=== PATIENT | male | born 1955 | race Caucasian/White ===

== ENCOUNTER 2023-03-21 08:39 | Emergency (ER) | payer MEDICARE, OTHER, SELFPAY ==
[2023-03-21] VITALS (13 sets, daily range): BP systolic 142–181; BP diastolic 91–107; PULSE 72–135; RESP 12–24; O2SAT 94–98
--- NOTE | 2023-03-21 08:44 | ECG_ITS ---
Measurements Intervals [place] Rate: 119 P: [place]: 0 QRS: 27 QRSD: 86 T: -10 QT: 325 QTc: 458 Interpretive Statements ATRIAL FLUTTER/TACHYCARDIA WITH RAPID VENTRICULAR RESPONSE DELAYED PRECORDIAL R/S TRANSITION NONSPECIFIC ST & T-WAVE ABNORMALITY- ANTEROLAT/HIGH LAT LEADS ABNORMAL ECG NO PREVIOUS ECG AVAILABLE FOR COMPARISON Electronically Signed On 03-21-2023 10:31:05 CDT by Yoandy Segundo D.O.
[2023-03-21 09:08] LABS: Basophils Percent Auto 0.4 % (0.2-1.2); Eosinophils Absolute Auto 0.1 K/mm3 (0-0.3); Eosinophils Percent Auto 1.6 % (0-4.4); Hematocrit 50.3 % (42.0-52.0); Hemoglobin 17.5 g/dL (14.0-18.0); Immature Granulocyte Absolute 0.01 K/mm3 (0.00-0.031); Immature Granulocyte Percent A 0.1 % (0-0.5); Lymphocytes Absolute Auto 1.92 K/mm3 (0.9-3.2); Lymphocytes Percent Auto 28.7 % (18.3-44.2); Mean Corpuscular HGB Conc 34.8 g/dl (32-36); Mean Corpuscular Hemoglobin 34.1 pg (26-34); Mean Corpuscular Volume 98.1 fl (80-100); Mean Platelet Volume 11.9 fl (7.4-10.4); Monocytes Absolute Auto 0.8 K/mm3 (0.1-0.6); Monocytes Percent Auto 12.1 % (2.6-8.5); Neutrophils Absolute Auto 3.8 K/mm3 (1.3-6.7); Neutrophils Percent Auto 57.1 % (45.5-73.1); Platelet Count Result 155 k/mm3 (150-375); Red Blood Count 5.13 M/mm3 (4.6-6.20); Red Cell Distribution Width 12.8 % (11.5-14.5); White Blood Count 6.7 K/mm3 (4.5-10.0)
[2023-03-21 09:17] LABS: Alanine Aminotransferase 32 U/L (6-50); Albumin Level 4.3 g/dL (3.5-5.1); Alkaline Phosphatase 73 U/L (38-126); Anion Gap 8 mmol/L (8-16); Aspartate Amino Transferase 33 U/L (17-59); Bilirubin,Total 1.7 mg/dL (0.2-1.3); Blood Urea Nitrogen 17 mg/dL (9-20); Calcium 9.7 mg/dL (8.4-10.2); Carbon Dioxide 29 mmol/L (22-30); Chloride 104 mmol/L (98-107); Estimated CRCL calculation 76 ml/min; Estimated Glomerular Filt Rate > 60; Glucose 93 mg/dL (65-110); Magnesium 1.8 mg/dL (1.6-2.3); Potassium 3.9 mmol/L (3.4-5.0); Sodium 141 mmol/L (137-145)
--- NOTE | 2023-03-21 09:22 | ED.GENADULT ---
HPI - General Adult General Chief complaint: Arrhythmia/Palpitations <RACIEL Macdonald Last Filed: 03/21/23 16:45> Stated complaint: AFIB and problems with my heart <RACIEL Macdonald Last Filed: 03/21/23 16:45> Time Seen by Provider: 03/21/23 08:54 <Seth Galindo PA-C - Last Filed: 03/21/23 16:45> Source: patient <RACIEL Macdonald Last Filed: 03/21/23 16:45> Mode of arrival: ambulatory <RACIEL Macdonald Last Filed: 03/21/23 16:45> Limitations: no limitations <RACIEL Macdonald Last Filed: 03/21/23 16:45> History of Present Illness HPI narrative: This is a 67-year-old male with PMH of A-fib who presents to the ED with chief complaint of palpitations ongoing for the past 48 hours. Patient states that he is a regular runner and went for his run on morning when the palpitations began shortly after. He states that normally his heart rate goes down after his runs, however it stayed high. He reports that he had a cardiac ablation for A-fib back in 2012 which seemed to eliminate most of his symptoms until lately. States his only symptoms are the palpitations. States he feels out of rhythm. Patient denies any chest pain, shortness of breath, cough, leg swelling. <RACIEL Macdonald Last Filed: 03/21/23 16:45> Related Data Home medications: Home Medications Medication Instructions Recorded Confirmed Flomax 03/21/23 cyclobenzaprine 10 mg tablet 10 mg PO TID 03/21/23 tramadol 50 mg tablet mg 03/21/23 zolpidem 5 mg tablet (Ambien) 5 mg PO HS 03/21/23 <RACIEL Macdonald Last Filed: 03/21/23 16:45> Allergies/adverse reactions: Allergies Allergy/AdvReac Type Severity Reaction Status Date / Time No Known Allergies Allergy Verified 03/21/23 08:44 <RACIEL Macdonald Last Filed: 03/21/23 16:45> Exam Narrative: GENERAL: Well-appearing, well-nourished, and in no acute distress. Resting comfortably in the bed. HEAD: Normocephalic, atraumatic. EYES: PERRLA and EOMI. ENT: Nares clear, no rhinorrhea or epistaxis. Mucous membranes moist. Oropharynx without tonsillar hypertrophy exudate or other lesions. NECK: Supple. No adenopathy or masses. CHEST: No respiratory distress. Clear to auscultation. No wheezes rales or rhonchi HEART: Regularly irregular. Rate in the room jumping from 110s to 130s. Grade II systolic murmur. Normal peripheral pulses. ABDOMEN: Soft, nontender, nondistended, normal active bowel sounds. MSK: Normal range of motion. No edema. SKIN: Warm, dry, no rash. NEURO: Alert and oriented x3. No focal deficits. PSYCH: Normal mood and affect. <Seth Galindo PA-C - Last Filed: 03/21/23 16:45> Course Course Emergency Course: Reevaluation 1000: Rate controlled in the 70s after 1 bolus of Cardizem 10 mg. Repeat EKG shows continued A flutter with rate 72 <Seth Galindo PA-C - Last Filed: 03/21/23 16:45> BLANCHARD GRINDER OPERATOR/PA Physician Supervision This visit was performed by both a physician and an APC. I performed all aspects of the MDM as documented. <Nam Newsome MD - Last Filed: 03/21/23 19:30> Vital Signs Vital signs: Vital Signs Pulse Rate 112 H 03/21/23 08:46 Respiratory Rate 22 H 03/21/23 08:46 Blood Pressure 154/106 H 03/21/23 08:46 Pulse Oximetry 98 03/21/23 08:46 Pulse Rate 73 03/21/23 10:47 Respiratory Rate 19 03/21/23 10:47 Blood Pressure 145/99 H 03/21/23 10:47 Pulse Oximetry 96 03/21/23 10:47 <RACIEL Macdonald Last Filed: 03/21/23 16:45> Vital Signs Pulse Rate 112 H 03/21/23 08:46 Respiratory Rate 22 H 03/21/23 08:46 Blood Pressure 154/106 H 03/21/23 08:46 Pulse Oximetry 98 03/21/23 08:46 Pulse Rate 73 03/21/23 10:47 Respiratory Rate 19 03/21/23 10:47 Blood Pressure 145/99 H 03/21/23 10:47 Pulse Oximetry 96 03/21/23 10:47 <Nam Newsome MD - Last Filed: 03/21/23 19:30> Medical Decision Making
[2023-03-21] MEDS: dilTIAZem HCl INJ 25 MG/5 ML VIAL 10 MG IV PUSH (09:36)
--- NOTE | 2023-03-21 09:43 | ECG_ITS ---
Measurements Intervals [place] Rate: 72 P: [place]: 0 QRS: 22 QRSD: 94 T: 123 QT: 397 QTc: 435 Interpretive Statements ATRIAL FLUTTER WITH NORMAL VENTRICULAR RESPONSE DELAYED PRECORDIAL R/S TRANSITION BORDERLINE ST-T WAVE ABNORMALITY- LAT/HIGH LAT LEADS ABNORMAL ECG COMPARED TO ECG 03/21/2023 08:48:39 HEART RATE HAS DECREASED Electronically Signed On 03-21-2023 10:33:47 CDT by Yoandy Segundo D.O.
== END 2023-03-21 10:57 | disposition home or self-care (01) ==
PROVIDERS: Emergency Provider Physician Assistant; PCP Family Medicine
DX: I48.92 Unspecified atrial flutter (principal); I48.91 Unspecified atrial fibrillation; Z79.899 Other long term (current) drug therapy
CPT/HCPCS: 36415; 80053; 83735; 85025; 93005; 96374; 99284

== ENCOUNTER 2023-12-23 10:10 | Outpatient (CLI) | payer MEDICARE, OTHER, SELFPAY ==
[2023-12-23 12:18] LABS: Basophils Percent Auto 0.6 % (0.2-1.2); Eosinophils Absolute Auto 0.1 K/mm3 (0-0.3); Eosinophils Percent Auto 1.8 % (0-4.4); Hematocrit 46.5 % (42.0-52.0); Hemoglobin 15.7 g/dL (14.0-18.0); Immature Granulocyte Absolute 0.02 K/mm3 (0.00-0.031); Immature Granulocyte Percent A 0.4 % (0-0.5); Immature Platelet Fraction Pct 13.4 % (0.9-11.2); Lymphocytes Absolute Auto 1.58 K/mm3 (0.9-3.2); Lymphocytes Percent Auto 32.2 % (18.3-44.2); Mean Corpuscular HGB Conc 33.8 g/dl (32-36); Mean Corpuscular Hemoglobin 34.2 pg (26-34); Mean Corpuscular Volume 101.3 fl (80-100); Mean Platelet Volume 13.2 fl (7.4-10.4); Monocytes Absolute Auto 0.5 K/mm3 (0.1-0.6); Monocytes Percent Auto 9.2 % (2.6-8.5); Neutrophils Absolute Auto 2.7 K/mm3 (1.3-6.7); Neutrophils Percent Auto 55.8 % (45.5-73.1); Platelet Count Result 141 k/mm3 (150-375); Red Blood Count 4.59 M/mm3 (4.6-6.20); White Blood Count 4.9 K/mm3 (4.5-10.0)
[2023-12-23 12:31] LABS: Alanine Aminotransferase 26 U/L (6-50); Albumin Level 4.7 g/dL (3.5-5.1); Alkaline Phosphatase 63 U/L (38-126); Anion Gap 6 mmol/L (4-12); Aspartate Amino Transferase 39 U/L (17-59); Bilirubin,Total 1.5 mg/dL (0.2-1.3); Blood Urea Nitrogen 15 mg/dL (9-20); Calcium 10.1 mg/dL (8.4-10.2); Carbon Dioxide 28 mmol/L (22-30); Chloride 108 mmol/L (98-107); Cholesterol 176 mg/dL (0-200); Estimated Glomerular Filt Rate > 60; Glucose 109 mg/dL (65-110); HDL Direct 56 mg/dL; Potassium 4.7 mmol/L (3.4-5.0); Sodium 142 mmol/L (137-145); Triglycerides 68 mg/dL (<150)
[2023-12-23 12:42] LABS: LDL Cholesterol Direct 98 mg/dL; Vitamin D 25 Hydroxy 27.9 ng/mL
[2023-12-23 12:54] LABS: Prostate Specific Antigen 3.2 ng/mL (< OR = 4.0)
[2023-12-23 13:13] LABS: Vitamin B12 > 1000.0 pg/mL (239-931)
[2023-12-23 13:19] LABS: Hemoglobin A1C 5.1 % (<5.7)
[2023-12-26 12:38] LABS: Testosterone Free 11.8 pg/mL (35.0-155.0); Testosterone Total 197 ng/dL (250-1100)
== END 2023-12-23 10:11 | disposition home or self-care (01) ==
PROVIDERS: PCP Family Medicine; Visit Provider Family Medicine
DX: M54.50 Low back pain, unspecified (principal); G89.29 Other chronic pain; I10 Essential (primary) hypertension; R73.9 Hyperglycemia, unspecified; E78.5 Hyperlipidemia, unspecified; E55.9 Vitamin D deficiency, unspecified; Z12.5 Encounter for screening for malignant neoplasm of prostate; E53.8 Deficiency of other specified B group vitamins; G47.00 Insomnia, unspecified; I48.0 Paroxysmal atrial fibrillation; K58.9 Irritable bowel syndrome, unspecified; R53.83 Other fatigue
CPT/HCPCS: 36415; 80053; 80061; 82306; 82607; 83036; 84153; 84402; 84403; 84443; 85025; 85055; G0103

== ENCOUNTER 2023-12-26 08:59 | Inpatient (IN) | payer MEDICARE, OTHER, SELFPAY ==
[2023-12-26] VITALS (11 sets, daily range): BP systolic 100–183; BP diastolic 62–96; PULSE 54–69; RESP 15–19; TEMP 36.1–36.7; O2SAT 96–100; BMI 26.1
--- NOTE | 2023-12-26 | ECHO_ITS ---
Patient Info Name: Nissa Jackson Age: 68 years : 1955 Gender: Male Ht: 71 in Wt: 187 lbs BSA: 2.07 m2 HR: 64 bpm BP: 116 / 71 mmHg Heart Rhythm: Sinus Rhythm Technical Quality: Fair Exam Date: 12/26/2023 3:05 PM Exam Location: Echo Lab Exam Room: 310 Patient Status: Inpatient Admit Date: 12/26/2023 Staff Ordering Physician: Armani Koenig MD Vamp Wetter: Dottie West RDCS Attending Provider: Jerry Sotelo MD Referring Physician: Arya LONDON; Exam Type: CA echo doppler color flow Study Info Indications - sob pericardial effusion elevated bnp pap Complete two-dimensional, color flow and Doppler transthoracic echocardiogram is performed. Summary 1. Complete two-dimensional, color flow and Doppler transthoracic echocardiogram is performed. 2. Left ventricular chamber dimension is normal. 3. Left ventricular systolic function is normal, estimated at 60-65%. 4. There is mildly increased left ventricular wall thickness. 5. The left ventricular diastolic function is normal. 6. Left atrial chamber dimension is mildly enlarged. 7. There is mild mitral valve regurgitation. 8. There is mild tricuspid valve regurgitation. 9. Mild pulmonary hypertension, estimated pulmonary arterial systolic pressure is 40 mmHg. 10. There is mild pulmonic regurgitation. 11. There is trivial pericardial effusion. Left Ventricle Left ventricular chamber dimension is normal. Left ventricular systolic function is normal, estimated at 60-65%. There is mildly increased left ventricular wall thickness. The left ventricular diastolic function is normal. Right Ventricle Right ventricular chamber dimension is normal. Right ventricular systolic function is normal. Left Atria Left atrial chamber dimension is mildly enlarged. Right Atria Right atrial chamber dimension is normal. Atrial Septum Intact interatrial septum visualized by color flow imaging. Aortic Valve The aortic valve is trileaflet. There is mild aortic valve sclerosis. There is no aortic valve stenosis. There is trace aortic valve regurgitation. Pulmonic Valve The pulmonic valve is normal. There is no pulmonic valve stenosis. There is mild pulmonic regurgitation. Mitral Valve The mitral valve has normal leaflets. There is no mitral valve stenosis. There is mild mitral valve regurgitation. Tricuspid Valve The tricuspid valve leaflets are normal. There is no significant tricuspid valve stenosis. There is mild tricuspid valve regurgitation. Mild pulmonary hypertension, estimated pulmonary arterial systolic pressure is 40 mmHg. Pericardium/Pleural The pericardium appears normal. There is trivial pericardial effusion. Inferior Vena Cava Normal inferior vena cava with >50% collapse upon inspiration consistent with elevated right atrial pressure, 10 mmHg. Aorta The aortic root size at the sinus of Valsalva is normal. Left Ventricular Outflow Tract Name Value Normal LVOT 2D LVOT Diameter 2.1 cm LVOT Doppler LVOT Peak Gradient 5 mmHg LVOT Mean Gradient 3 mmHg LVOT VTI 21 cm LVOT VTI/AV VTI Ratio
--- NOTE | ~2023-12-26 | XR_ITS ---
XR chest 1V portable 12/26/2023 09:22 Indication: Fatigue. Dyspnea with exertion. Procedure: AP portable chest Comparison: No prior studies for comparison. Findings: Heart size normal. No focal air space disease, pulmonary edema, pleural effusion or suspect ed pneumothorax. Impression: 1: No acute cardiopulmonary disease. Reviewed, dictated and finalized at location A. Impression: 1: No acute cardiopulmonary disease.
--- NOTE | ~2023-12-26 | CT_ITS ---
EXAMINATION: CTA chest PE protocol DATE: 12/26/2023 10:21 CDT INDICATION: Elevated d-dimer. TECHNIQUE: Computed tomographic angiography (CTA) of the chest was performed with 100 mL Omnipaque-35 0 intravenous contrast. The dose-length product was 431.78 mGy-cm. Maximum intensity projection 3D-re constructions of the aorta and other arteries were constructed by the technologist on a separate work station. Automated exposure control and iterative reconstruction technique were employed. COMPARISON: Chest dated 12/26/2023 FINDINGS: Study is technically adequate without evidence for pulmonary embolism. Trace right pleural effusion. Small pericardial effusion. Borderline heart size. Small hiatal hernia. Status post cholecy stectomy. No endobronchial lesions. There is dependent atelectasis. No pneumothorax. Status post chol ecystectomy. No endobronchial lesions. No focal airspace consolidation. Mild superior endplate compre ssion deformity of T3 which appears chronic. Mild thoracic spondylosis. No acute cardiopulmonary disease. No evidence for pulmonary embolism. IMPRESSION: 1. Reviewed, dictated and finalized at location A. IMPRESSION: 1.
--- NOTE | 2023-12-26 09:02 | ECG_ITS ---
SEE SCANNED COPY FOR CONFIRMED REPORT MTDD
[2023-12-26 09:28] LABS: Basophils Percent Auto 0.6 % (0.2-1.2); Eosinophils Absolute Auto 0.1 K/mm3 (0-0.3); Hematocrit 51.3 % (42.0-52.0); Hemoglobin 17.8 g/dL (14.0-18.0); Immature Granulocyte Absolute 0.02 K/mm3 (0.00-0.031); Immature Granulocyte Percent A 0.3 % (0-0.5); Lymphocytes Absolute Auto 2.06 K/mm3 (0.9-3.2); Lymphocytes Percent Auto 32.4 % (18.3-44.2); Mean Corpuscular HGB Conc 34.7 g/dl (32-36); Mean Corpuscular Hemoglobin 34.2 pg (26-34); Mean Corpuscular Volume 98.7 fl (80-100); Mean Platelet Volume 12.2 fl (7.4-10.4); Monocytes Absolute Auto 0.7 K/mm3 (0.1-0.6); Monocytes Percent Auto 10.5 % (2.6-8.5); Neutrophils Absolute Auto 3.4 K/mm3 (1.3-6.7); Neutrophils Percent Auto 54.2 % (45.5-73.1); Platelet Count Result 158 k/mm3 (150-375); Red Cell Distribution Width 12.5 % (11.5-14.5); White Blood Count 6.4 K/mm3 (4.5-10.0)
[2023-12-26 09:40] LABS: Alanine Aminotransferase 24 U/L (6-50); Albumin Level 4.8 g/dL (3.5-5.1); Alkaline Phosphatase 60 U/L (38-126); Anion Gap 7 mmol/L (4-12); Aspartate Amino Transferase 30 U/L (17-59); Bilirubin,Total 1.6 mg/dL (0.2-1.3); Blood Urea Nitrogen 20 mg/dL (9-20); Calcium 9.7 mg/dL (8.4-10.2); Carbon Dioxide 26 mmol/L (22-30); Chloride 105 mmol/L (98-107); Estimated CRCL calculation 75 ml/min; Estimated Glomerular Filt Rate > 60; Glucose 84 mg/dL (65-110); Potassium 4.2 mmol/L (3.4-5.0); Sodium 138 mmol/L (137-145)
[2023-12-26 09:48] LABS: NT Pro B Type Natriuretic Pept 1540 pg/mL (19.9-100)
[2023-12-26 09:54] LABS: Troponin I < 0.012 ng/mL (0.000-0.034)
[2023-12-26 09:56] LABS: D Dimer 1.76 ug/mL (<0.48)
--- NOTE | 2023-12-26 10:25 | ED.ARRPALP ---
HPI - Arrhythmia/Palpitations General Chief Complaint: Arrhythmia/Palpitations Stated Complaint: SOB, heart problems Time Seen by Provider: 12/26/23 09:00 History of Present Illness HPI narrative: Patient history of paroxysmal atrial flutter status post ablation presents here with concern that he is having some palpitations that his heart rate is higher than normal, he states that he is usually an athlete with resting heart rate in the 40s, and he went to try to take a shower and his heart rate went up to 110 and is unusual for him. He also reports some dyspnea on exertion. No chest pain. No cough. Related Data Home Medications Medication Instructions Recorded Confirmed calcium carb-vit C5-bitxhmxwh-moly 1 tablet PO DAILY 04/01/23 12/26/23 333 mg-200 unit-133 mg-5 mg tablet lutein 25 mg-zeaxanthin 5 mg 1 cap PO DAILY 04/01/23 12/26/23 capsule (Ocuvite Lutein) polyethylene glycol 3350 17 17 g PO DAILY 04/01/23 12/26/23 gram/dose oral powder (ClearLax) vitamin B complex (B 1 tablet PO DAILY 04/01/23 12/26/23 Complex-Vitamin B12 tablet) aspirin 81 mg tablet,delayed 81 mg PO DAILY 06/03/23 12/26/23 release dronedarone 400 mg tablet (Multaq) 400 mg PO DAILY 06/03/23 12/26/23 apixaban 5 mg tablet (Eliquis) 5 mg PO BID 12/26/23 12/26/23 diclofenac sodium 75 mg 75 mg PO PRN PRN pain 12/26/23 12/26/23 tablet,delayed release Allergies Allergy/AdvReac Type Severity Reaction Status Date / Time No Known Allergies Allergy Verified 12/26/23 09:09 Review of Systems Review of Systems: All systems reviewed & are unremarkable except as noted in HPI and below PMFSH Past Medical History Medical History (Updated 12/26/23 @ 13:44 by Amparo Tripp MD) Atrial flutter with rapid ventricular response (~03/2023) BPH (benign prostatic hyperplasia) Chronic low back pain Environmental allergies Essential (primary) hypertension IBS (irritable bowel syndrome) Insomnia Paroxysmal atrial fibrillation Surgical History Surgical History History of cholecystectomy (~2012) History of radiofrequency ablation (RFA) procedure for cardiac arrhythmia (~2012) Family History Family History Mother Colorectal cancer Sibling Diabetes mellitus Hypertension Heart disease Social History Social History Smoking status: Never smoker Second hand tobacco smoke exposure: No Alcohol intake: current Substance use: never Substance use type: does not use Lack of Transportation: No Lack of Food: Never True Current Housing: I Have Housing Concerned About Future Housing: No Difficulty Paying Gas/Electric Bills: No Difficulty Paying for Meds: No Currently Unemployed: No Education: High School Diploma/GED Difficulty w/ Childcare or Family Care: No Living arrangements: with family Additional living arrangements comments: Occupation/Education: retired Gender identity (if verbalized by the patient): Male Sexual Orientation (if Verbalized by the Patient): Straight or Heterosexual Agree to blood products: Yes Exam Narrative: EXAMINATION OF ORGAN SYSTEMS/BODY AREAS: Constitutional: Vital signs per nursing GENERAL:[No acute distress, non-toxic appearing.] HEAD: Normal with no signs of head trauma. EYES: EOMI, conjunctiva normal ENT: Hearing grossly intact LUNGS: Nonlabored breathing. HEART: [Regular rate and rhythm], clear to auscultation bilaterally ABD: [Soft], [nontender to palpation] EXT: Normal range of motion SKIN: [No rashes or lesions.] NEURO: [Alert and oriented x 3. No gross focal sensory or strength deficits.] PSYCH: Normal affect Course Vital Signs Vital signs: Vital Signs Pulse Rate 68 12/26/23 09:03 Respiratory Rate 19 12/26/23 09:03 Blood Pressure 183/96 H 12/26/23 09:03 Pulse Oximetry
--- NOTE | 2023-12-26 12:15 | ECG_ITS ---
SEE SCANNED COPY FOR CONFIRMED REPORT MTDD
[2023-12-26 12:27] LABS: Troponin I < 0.012 ng/mL (0.000-0.034)
--- NOTE | 2023-12-26 12:53 | PM.IMHP ---
H&P: HPI History of Present Illness Date/Time: 12/26/23 12:53 Chief Complaint: Palpitations, SOB Narrative: 68 y/o M presents here with palpitations and SOB with PMH of Aflutter RVR, BPH, HTN, IBS, and pAFib. Patient presented here from home for further evaluation of palpitations that started . Patient reported that he went for a run the morning of 12/23 and later that afternoon while patient was sitting watching TV, he started having tachycardia/palpitations. No associated shortness of breath or dizziness. Did have a headache with the palpations, described as achy/pressure to top of his head. Took 1G of Tylenol without relief and then ibuprofen later that afternoon which resolved the headache. Reports since palpitations on he has noted mild shortness of breath and lightheadedness with ambulation that is not limiting to his activity but is a deviation from his baseline. Patient checked his HR via his smartwatch and it was found to be in the mid 70's. Patient reports his normal HR is in the 40's due to being a avid runner: 3-4xper week, averaging 4-5 miles per run. Patient became concerned because his heart rate did not come down to its normal resting rate with rest over the last few days. Did note his HR was in the 120's after his shower this morning, lasted only 5-10 minutes, resolved without intervention. No associated symptoms with tachycardia this morning. Previous lightheadedness and shortness of breath are alleviated with rest and no other aggravating factors identified. Denies any chest pain, chest tightness, jaw pain, arm pain, diaphoresis, or nausea. No previous hx of smoking. No URI symptoms, cough, congestion, chills, fever or body aches. Did receive the Pneumovax vaccine on Thu, 12/22. Initial VS at presentation: 98.1? F, HR 68, RR 19, 183/96, and 100% on RA ED workup showed: no leukocytosis, no anemia, D-dimer 1.76, no significant electrolyte derangements, creatinine 0.9 and GFR >60, total bilirubin 1.6 (previously 1.7 in 03/29 and 1.5 in 12/29), and BNP 1540. CXR showed no acute cardiopulmonary disease. Chest CTA showed no acute cardiopulmonary disease and no evidence of PE. Initial EKG showed Sinus rhythm, ST deviation and moderate T-wave abnormality consider lateral ischemia, awaiting formal read. Review of Systems Review of Systems: All systems reviewed & are unremarkable except as noted in HPI and below [facility] Past Medical History Medical History Atrial flutter with rapid ventricular response (~03/2023) BPH (benign prostatic hyperplasia) Chronic low back pain Environmental allergies Essential (primary) hypertension IBS (irritable bowel syndrome) Insomnia Paroxysmal atrial fibrillation Surgical History Surgical History History of cholecystectomy (~2012) History of radiofrequency ablation (RFA) procedure for cardiac arrhythmia (~2012) Family History Family History Mother Colorectal cancer Sibling Diabetes mellitus Hypertension Heart disease Social History Social History Smoking status: Never smoker Second hand tobacco smoke exposure: No Alcohol intake: current Drinks per week: 2 Substance use: never Substance use type: does not use Do You Feel Safe in your Home?: Yes Lack of Transportation: No Lack of Food: Never True Current Housing: I Have Housing Concerned About Future Housing: No Difficulty Paying Gas/Electric Bills: No Difficulty Paying for Meds: No Currently Unemployed: No Education: High School Diploma/GED Difficulty w/ Childcare or Family Care: No Living arrangements: with family Additional living arrangements comments: Occupation/Education: retired Gender identity (if verbalized by the patient): Male Sexual Orientation (
--- NOTE | 2023-12-26 14:29 | PM.CNCAR ---
Assessment and Plan Assessment and plan (1) Pericardial effusion: Code(s): I31.39 - Other pericardial effusion (noninflammatory) Status: Acute Assessment and Plan: Small effusion noted by CT scan. Uncertain if this has any clinical relevance or not. Will check a 2D echocardiogram with Doppler. Will check a TSH, free T4 level and a CRP (2) CASILLAS (dyspnea on exertion): Code(s): R06.09 - Other forms of dyspnea Status: Acute Assessment and Plan: Worsening dyspnea with exertion with elevated BNP. He is very active and fit man but has noticed some worsening dyspnea over the past couple of days. BNP is elevated. He did receive Pneumovax shot 2 days ago. Uncertain if the Pneumovax shot is a red cowan but he does have a pericardial effusion and at least a sensation of breathing harder with an elevated BNP with an abnormal ECG. 2D echocardiogram with Doppler is ordered and will be reviewed. Will check orthostatics because of his dizziness (3) Essential (primary) hypertension: Code(s): I10 - Essential (primary) hypertension Status: Acute Assessment and Plan: Continue diltiazem (4) Paroxysmal atrial fibrillation: Code(s): I48.0 - Paroxysmal atrial fibrillation Status: Acute Assessment and Plan: Continue diltiazem and aspirin. He is instructed by his assistant account manager to take his Eliquis when he goes in AFib/flutter. Will hold Eliquis for now especially since he has a pericardial effusion History of Present Illness History of Present Illness Consult date/time: 12/26/23 14:29 Requesting physician: Amparo Trpip MD Consult reason: congestive heart failure and Other Reason For Visit: Possible new CHF Narrative: Date of service 12/26/2023: Requesting provider: Dr. Tripp Reason for consultation: CHF History: Patient is a 68-year-old male who was previously very healthy. Does have a history of paroxysmal atrial fibrillation status [place] [address] Bear. Last year he did have an episode of atrial flutter. He typically exercises and usually runs up to 4 miles at a time and can run up to 8 miles. which is 2 days ago he went on his normal run felt fine. Earlier in the day he did have his Pneumovax shot. In the evening the 130s 80 started to feel little lightheaded and noticed his heart rate was a bit more elevated for him. Typically his resting heart rate is in the 40s. He notices heart rate was in the 60s and 70s. He over the next couple of days he has been breathing a little bit harder than typical. Denies any chest pain, syncope but has been having some dizziness also. By doing simple things such as taking a shower he has noticed his heart rate will be as high as in the 120s which is quite unusual for him. He denies any paroxysmal nocturnal dyspnea, orthopnea, edema does not feel palpitations. Came to the ER though because of the dizziness and elevated heart rate for him. He went on a walk with his yesterday and felt to be breathing harder than usual. Review of Systems Review of Systems: All systems reviewed & are unremarkable except as noted in HPI and below Constitutional: Constitutional: Denies body ache(s) Eyes: Eyes: Denies blurry vision ENT: Reports Normal hearing present Cardiovascular: Cardiovascular: Denies chest pain Respiratory: Respiratory: Reports dyspnea on exertion Gastrointestinal: Gastrointestinal: Denies abdominal pain Genitourinary: Genitourinary: Denies hematuria Musculoskeletal: Musculoskeletal: Denies joint swelling Integumentary/Breasts: Skin/Breast: Denies dry skin Neurologic: Denies Abnormal speech present Psychiatric: Psychiatric: Denies anxiety Endocrine: Endocrine: Denies excessive sweating Hematologic/Lymphatic: Hematologic/Lymphatic: Denies easy bleeding Allergic/Immunologic: Allergic/Immunologic: Denies GI upset with certain foods PMFSH Past Medical History Medical His
[2023-12-26 16:18] LABS: Influenza A QL RT-PCR Negative (Negative); Influenza B QL RT-PCR Negative (Negative); RSV RNA, RT-PCR Negative (Negative); SARS-CoV-2 RNA PCR Negative (Negative)
[2023-12-26 17:55] LABS: CRP < 0.5 mg/dL (<1.0)
[2023-12-26 18:09] LABS: T4 Thyroxine 8.01 ug/dL (5.53-11.0)
[2023-12-26] MEDS: TAMSULOSIN HCL 0.4 MG CAPSULE PO (21:26)
[2023-12-26] MEDS: DRONEDARONE HCL 400 MG TABLET PO (21:26)
[2023-12-26] MEDS: ZOLPIDEM TARTRATE (*CRX) 5 MG TABLET PO (21:27)
[2023-12-27] VITALS: PULSE 50
[2023-12-27 04:00] VITALS: PULSE 44
[2023-12-27 06:00] VITALS: BP 129/87; PULSE 61; RESP 16; TEMP 36.7; O2SAT 96
[2023-12-27 06:18] LABS: Hematocrit 44.9 % (42.0-52.0); Hemoglobin 15.1 g/dL (14.0-18.0); Mean Corpuscular HGB Conc 33.6 g/dl (32-36); Mean Corpuscular Hemoglobin 33.9 pg (26-34); Mean Corpuscular Volume 100.7 fl (80-100); Mean Platelet Volume 12.1 fl (7.4-10.4); Platelet Count Result 129 k/mm3 (150-375); Red Blood Count 4.46 M/mm3 (4.6-6.20); Red Cell Distribution Width 12.3 % (11.5-14.5); White Blood Count 4.2 K/mm3 (4.5-10.0)
[2023-12-27 06:37] LABS: Anion Gap 3 mmol/L (4-12); Blood Urea Nitrogen 21 mg/dL (9-20); Calcium 9.3 mg/dL (8.4-10.2); Carbon Dioxide 30 mmol/L (22-30); Chloride 106 mmol/L (98-107); Estimated CRCL calculation 68 ml/min; Estimated Glomerular Filt Rate > 60; Glucose 92 mg/dL (65-110); Potassium 4.2 mmol/L (3.4-5.0); Sodium 139 mmol/L (137-145)
--- NOTE | 2023-12-27 06:56 | PM.IMPN ---
Progress Note: A&P Assessment and Plan (1) Shortness of breath: Code(s): R06.02 - Shortness of breath Status: Acute Assessment and Plan: - CXR: no acute cardiopulmonary disease. - Chest CTA: no acute cardiopulmonary disease. no evidence for pulmonary embolism. trace right pleural effusion and small pericardial effusion. - BNP: 1540 - no previous echo on file, ordered - troponin negative x2 - viral PCR added - no supplemental O2 requirement - cardiology consulted, see note - telemetry monitoring 12/26: Viral PCR negative ECHO showed normal systolic LV function with EF estimated at 60-65%. Mildly increased LV thickness, mild tricuspid and mitral valve regurgitation, mild pulmonary HTN estimated at 40 mmHg. There is a trivial pericardial effusion. Appreciate cardiology consult (2) Palpitations: Code(s): R00.2 - Palpitations Status: Acute Assessment and Plan: - EKG, initial: sinus rhythm with rate of 66, ST deviation and moderate T-wave abnormality consider lateral ischemia, abnormal EKG, awaiting formal read. - CXR: no acute cardiopulmonary disease. - Troponin: <0.012 -> <0.012 - TSH 1.150 - cardiology consulted, Arya BOWMAN. check echo add CRP and free T4 orthostatics hold Eliquis - told previously by his assembler billiard table to take Eliquis when he goes into AFib or a flutter, hold due to pericardial effusion. Continue diltiazem and aspirin. - hx of AFlutter RVR and pAFib on Eliquis 5 mg b.i.d., aspirin 81 daily, diltiazem 120 ER daily, dronedarone 400 mg daily - echo ordered, no previous on file - telemetry monitoring 12/26: Orthostatic blood pressures + from sitting to standing with 30 point decrease in systolic BP. Heart rate remained in the 60's though. TSH, T4 normal CPR negative (3) Essential (primary) hypertension: Code(s): I10 - Essential (primary) hypertension Status: Acute Assessment and Plan: - chronic, currently 116/71 - continue home medications: Diltiazem - monitor Plan Patient here for further evaluation of palpitations and shortness of breath. BNP elevated. Echo ordered, no previous on file. Cardiology consulted. Troponin negative x2. Home Meds/Chronic Conditions - hold eliquis - continuing aspirin, calcium/d3/mag/zinc, vitamin d3, diclofenac prn, diltiazem, dronedarone, opti-gen, miralax, tamsulosin, b complex, and ambien Diet: heart healthy GI Prophylaxis: not indicated DVT Prophylaxis: SCDs Lines: peripheral Code Status: full code Subjective Date/time seen: 12/27/23 06:56 Interval history: 68 y/o M presents here with palpitations and SOB with PMH of Aflutter RVR, BPH, HTN, IBS, and pAFib. Presented to the ED with complaints of palpitations. 12/26: Review of Systems Review of Systems: All systems reviewed & are unremarkable except as noted in HPI and below Exam Narrative: General: well appearing, appears stated age. HEENT: normocephalic, atraumatic. Mucous membranes moist. EOMI, PERRLA, bilateral sclera anicteric, no conjunctival injection. Neck supple without JVD, lymphadenopathy, or bruit. Respiratory: clear to ascultation bilaterally. No rales/rhonic/wheezes. Cardiovascular: Regular rate and rhythm, normal S1-S2 upon ascultation. No murmurs, rubs, or clicks. PMI is nondisplaced, capillary refill less than 3 second. Abdomen: Soft, round, no pulsatile masses, nondistended and nontender. No rebound, no guarding. No CVA tenderness, no hepatosplenomegaly. Bowel sounds present to all four quadrants. No high pitch or tinkling sounds, resonant to percussion. Extremities: No cyanosis, clubbing, or edema present. Pulses are palpable 2/2. Active ROM to all four extremities. Neuro: Alert and orientated x 4. PERRLA. Cranial nerves 2-12 intact without focal deficit. Skin: Warm, dry, and intact, without rash, erythema, or lesion. Lines: Incisions: Psych: pleasant, cooperative, normal speech, normal affe
[2023-12-27 08:00] VITALS: BP 126/84; PULSE 46
[2023-12-27] MEDS: ASPIRIN 81 MG ENTERIC TABLET PO (08:32)
[2023-12-27] MEDS: OPTI-GEN TAB 1 TABLET PO (08:32)
[2023-12-27] MEDS: CALCIUM/VITAMIN D 500 MG/5 MCG (200 I.U.) TABLET PO (08:32)
[2023-12-27] MEDS: polyethylene glycoL 3350 17 GM POWD.PACK PO (08:32)
[2023-12-27] MEDS: dilTIAZem HCL CD 120 MG CAP.24HR PO (08:32)
[2023-12-27] MEDS: VITAMIN B COMPLEX CAPSULE 1 CAP PO (08:32)
--- NOTE | 2023-12-27 10:36 | PM.PNCARD ---
Progress Note: A&P Assessment and Plan (1) Pericardial effusion: Code(s): I31.39 - Other pericardial effusion (noninflammatory) Status: Acute Assessment and Plan: No significant effusion seen by echocardiogram (2) CASILLAS (dyspnea on exertion): Code(s): R06.09 - Other forms of dyspnea Status: Acute Assessment and Plan: Resolved (3) Essential (primary) hypertension: Code(s): I10 - Essential (primary) hypertension Status: Acute Assessment and Plan: Continue diltiazem (4) Paroxysmal atrial fibrillation: Code(s): I48.0 - Paroxysmal atrial fibrillation Status: Acute Assessment and Plan: Continue diltiazem and aspirin. He is instructed by his motion picture equipment machinist to take his Eliquis when he goes in AFib/flutter. (5) Abnormal ECG: Code(s): R94.31 - Abnormal electrocardiogram [ECG] [EKG] Status: Acute Assessment and Plan: EKG had some abnormality showing lateral T-wave inversions. He states that he has had abnormal ECG showing T-wave abnormalities in the past. Will order an outpatient coronary artery CT scan for further evaluation. Otherwise, no further inpatient workup needed. He can be discharged and follow with Dr. Bear Subjective Date/time seen: 12/27/23 10:36 Interval history: 68 y/o M presents here with palpitations and SOB with PMH of Aflutter RVR, BPH, HTN, IBS, and pAFib. Presented to the ED with complaints of palpitations. Date of service 12/27/2023: Feels back to normal today. No chest pain, shortness breath, palpitations Review of Systems Review of Systems: All systems reviewed & are unremarkable except as noted in HPI and below Constitutional: Constitutional: Denies body ache(s) and Denies excessive sweating Eyes: Eyes: Denies blurry vision ENT: Reports Normal hearing present Cardiovascular: Cardiovascular: Denies chest pain and Reports dyspnea on exertion Respiratory: Respiratory: Reports dyspnea on exertion Gastrointestinal: Gastrointestinal: Denies abdominal pain Genitourinary: Genitourinary: Denies hematuria Musculoskeletal: Musculoskeletal: Denies joint swelling Integumentary/Breasts: Skin/Breast: Denies dry skin Neurologic: Reports Normal hearing present and Denies Abnormal speech present Psychiatric: Psychiatric: Denies anxiety Endocrine: Endocrine: Denies excessive sweating Hematologic/Lymphatic: Hematologic/Lymphatic: Denies easy bleeding Allergic/Immunologic: Allergic/Immunologic: Denies GI upset with certain foods Exam Narrative: Awake alert oriented appears stated age Const: General: comfortable and no acute distress HENMT: Ears: TM's normal bilaterally Face/Nose/Sinus: Normal nares present Eyes: General: appearance normal, both eyes and all related structures Sclera: sclerae normal Neck: Neck: supple and no JVD Carotids: no bruits Chest: Other: No reproducible chest wall pain to palpation Resp: Effort & Inspection: normal respiratory effort Auscultation: clear to auscultation bilaterally Cardio: Rate: regular rate Rhythm: regular rhythm Heart sounds: Murmur heart sound present Other: 1/6 systolic ejection murmur at base GI: Inspection: non-distended Auscultation: normal bowel sounds Skin: General skin exam: normal color Neuro: General: gait normal Cranial nerves: Yes Normal hearing present Speech: normal speech and No Abnormal speech present Extrem: General: normal to inspection Psych: Mental Status: mental status grossly normal Affect: normal affect Objective Data Vital Signs Vital Signs: Vital Signs - 24 hr 12/26/23 10:46 12/26/23 11:46 12/26/23 12:17 Temperature 36.7 C Pulse Rate 61 62 65 Respiratory Rate 19 18 15 Blood Pressure 159/96 H 155/91 H 130/87 Pulse Oximetry 97 96 97 Oxygen Delivery 12/26/23 12:53 12/26/23 14:00 12/26/23 16:00 Temperature 36.1 C L Pulse Rate 66 66 Respiratory Rate 1
--- NOTE | 2023-12-27 11:51 | PM.DS ---
DS: Admitting Diagnosis Discharge Date 12/26 Admitting Diagnosis chest palpitations DS: Discharge Diagnosis Discharge Diagnosis (1) Shortness of breath: Code(s): R06.02 - Shortness of breath Status: Acute (2) Palpitations: Code(s): R00.2 - Palpitations Status: Acute (3) Essential (primary) hypertension: Code(s): I10 - Essential (primary) hypertension Status: Acute Plan Assessment and plan (1) Shortness of breath: ?Code(s): R06.02 - Shortness of breath ?Status:?Acute ?Assessment and Plan: - CXR: no acute cardiopulmonary disease. - Chest CTA: no acute cardiopulmonary disease. no evidence for pulmonary embolism. trace right pleural effusion and small pericardial effusion. - BNP: 1540 - no previous echo on file, ordered - troponin negative x2 - viral PCR added - no supplemental O2 requirement - cardiology consulted, see note - telemetry monitoring (2) Palpitations: ?Code(s): R00.2 - Palpitations ?Status:?Acute ?Assessment and Plan: - EKG, initial: sinus rhythm with rate of 66, ST deviation and moderate T-wave abnormality consider lateral ischemia, abnormal EKG, awaiting formal read. - CXR: no acute cardiopulmonary disease. - Troponin: <0.012 -> <0.012 - TSH 1.150 - cardiology consulted, Arya BOWMAN. check echo add CRP and free T4 orthostatics hold Eliquis -? told previously by his faculty support coordinator to take Eliquis when he goes into AFib or a flutter, hold due to pericardial effusion.? Continue diltiazem and aspirin. - hx of AFlutter RVR and pAFib on Eliquis 5 mg b.i.d., aspirin 81 daily, diltiazem 120 ER daily, dronedarone 400 mg daily - echo ordered, no previous on file - telemetry monitoring (3) Essential (primary) hypertension: ?Code(s): I10 - Essential (primary) hypertension ?Status:?Acute ?Assessment and Plan: - chronic, currently 116/71 - continue home medications:? Diltiazem - monitor Plan Patient here for further evaluation of palpitations and shortness of breath.? BNP elevated.? Echo ordered, no previous on file.? Cardiology consulted.? Troponin negative x2. DS: Summary Hospital Course Reason for hospitalization: palpitations Hospital Course: 68 y/o M presents here with palpitations and SOB with PMH of Aflutter RVR, BPH, HTN, IBS, and pAFib. He was seen by cardiology and an ECHO was obtained which as normal. He has been SR on telemetry without further elevations in heart rate. Labs and vitals reviewed. He can safely discharge home today. From cardiology note; EKG had some abnormality showing lateral T-wave inversions.? He states that he has had abnormal ECG showing T-wave abnormalities in the past.? Will order an outpatient coronary artery CT scan for further evaluation.? Otherwise, no further inpatient workup needed.? He can be discharged and follow with Dr. Bear Status at Discharge Cognitive/behavioral status at discharge: A&Ox4 Time Spent with Patient Time attestation: Total time spent providing and/or coordinating discharge services: 45 Exam Narrative: General: well appearing, appears stated age. HEENT: normocephalic, atraumatic. Mucous membranes moist. EOMI, PERRLA, bilateral sclera anicteric, no conjunctival injection. Neck supple without JVD, lymphadenopathy, or bruit. Respiratory: clear to auscultation bilaterally. No rales/rhonic/wheezes. Cardiovascular: Regular rate and rhythm, normal S1-S2 upon auscultation. No murmurs, rubs, or clicks. PMI is nondisplaced, capillary refill less than 3 second. Abdomen: Soft, round, no pulsatile masses, nondistended and nontender. No rebound, no guarding. No CVA tenderness, no hepatosplenomegaly. Bowel sounds present to all four quadrants. No high pitch or tinkling sounds, resonant to percussion. Extremities: No cyanosis, clubbing, or edema present. Pulses are palpable 2/2. Active ROM to all four extremities. Neuro: Alert and orientated x 4. PERRLA.
--- NOTE | 2023-12-27 13:30 | PCCCNOTE ---
On 12/27/23, the student, [Melvina Castelan ], provided care and completed [facility] documentation on this patient. I have reviewed the student's documentation and agree with the findings.
== END 2023-12-27 12:15 | disposition home or self-care (01) | DRG 315 ==
LOC: ANHED 09:59 → ANH3MEDSUR 12:09
PROVIDERS: Internal Medicine Cardiovascular Disease; Student in an Organized Health Care Education/Training Program; Admitting Provider Internal Medicine; Emergency Provider Emergency Medicine; PCP Family Medicine; Visit Provider Nurse Practitioner Acute Care
DX: I31.39 Other pericardial effusion (noninflammatory) (principal); I48.92 Unspecified atrial flutter; I48.0 Paroxysmal atrial fibrillation; I10 Essential (primary) hypertension; K58.9 Irritable bowel syndrome, unspecified; N40.0 Benign prostatic hyperplasia without lower urinary tract symptoms; Z90.49 Acquired absence of other specified parts of digestive tract; Z79.82 Long term (current) use of aspirin; Z79.01 Long term (current) use of anticoagulants; Z20.822 Contact with and (suspected) exposure to COVID-19
CPT/HCPCS: 36415; 71045; 71275; 80048; 80053; 80061; 82306; 82607; 83036; 83880; 84153; 84402; 84403; 84436; 84443; 84484; 85025; 85027; 85055; 85380; 86140; 87637; 93005; 93306; 99285; A9270; G0103; Q9967

== ENCOUNTER 2024-01-29 07:26 | Outpatient (CLI) | payer MEDICARE, OTHER, SELFPAY ==
--- NOTE | ~2024-01-29 | MR_ITS ---
MRI of the brain Clinical History: Cognitive decline Technique: Axial and sagittal T1-weighted images were acquired. These were followed by axial T2-weigh adan, diffusion weighted, gradient, and FLAIR images. Findings: No abnormal signal seen in the brain parenchyma. No acute infarct, intracranial hemorrhage or mass lesion. Ventricles and subarachnoid spaces are unremarkable. Orbits are unremarkable. Paranasal sinuses and m astoid air cells are clear. Major intracranial flow voids are intact. Sagittal midline structures are intact. IMPRESSION: Unremarkable exam. Reviewed, dictated and finalized at location M. IMPRESSION: Unremarkable exam.
[2024-01-29 09:44] LABS: Folic Acid 10.4 ng/mL (2.76->20)
[2024-02-04 14:23] LABS: Creatinine,Random Urine 56 mg/dL (20-320)
[2024-02-05 11:13] LABS: Vitamin B6 10.4 ng/mL (2.1-21.7)
[2024-02-06 17:57] LABS: Cobalt,Random Urine 0.8 mcg/L
[2024-02-06 19:34] LABS: Thallium, Urine 0.4 (<=0.4)
== END 2024-01-29 07:27 | disposition home or self-care (01) ==
PROVIDERS: PCP Family Medicine; Visit Provider Family Medicine
DX: E29.1 Testicular hypofunction (principal); R68.89 Other general symptoms and signs; Z79.899 Other long term (current) drug therapy
CPT/HCPCS: 36415; 70551; 82746; 84207; 84443

== ENCOUNTER 2024-04-12 10:40 | Outpatient (CLI) | payer MEDICARE, OTHER, SELFPAY ==
[2024-04-12 14:17] LABS: Basophils Percent Auto 0.5 % (0.2-1.2); Eosinophils Absolute Auto 0.1 K/mm3 (0-0.3); Eosinophils Percent Auto 1.5 % (0-4.4); Hemoglobin 15.8 g/dL (14.0-18.0); Immature Granulocyte Absolute 0.02 K/mm3 (0.00-0.031); Immature Granulocyte Percent A 0.3 % (0-0.5); Immature Platelet Fraction Pct 12.2 % (0.9-11.2); Lymphocytes Absolute Auto 1.82 K/mm3 (0.9-3.2); Lymphocytes Percent Auto 30.4 % (18.3-44.2); Mean Corpuscular HGB Conc 34.3 g/dl (32-36); Mean Corpuscular Hemoglobin 34.6 pg (26-34); Mean Corpuscular Volume 100.9 fl (80-100); Mean Platelet Volume 12.7 fl (7.4-10.4); Monocytes Absolute Auto 0.5 K/mm3 (0.1-0.6); Monocytes Percent Auto 8.5 % (2.6-8.5); Neutrophils Absolute Auto 3.5 K/mm3 (1.3-6.7); Neutrophils Percent Auto 58.8 % (45.5-73.1); Platelet Count Result 142 k/mm3 (150-375); Red Blood Count 4.56 M/mm3 (4.6-6.20); Red Cell Distribution Width 12.7 % (11.5-14.5)
[2024-04-12 14:36] LABS: Cholesterol 154 mg/dL (0-200); HDL Direct 48 mg/dL; Triglycerides 87 mg/dL (<150)
[2024-04-12 14:48] LABS: LDL Cholesterol Direct 80 mg/dL
[2024-04-12 15:30] LABS: Vitamin B12 > 1000.0 pg/mL (239-931)
[2024-04-16 06:54] LABS: Methylmalonic Acid 112 nmol/L (69-390)
[2024-04-18 07:54] LABS: Reference Lab Test Name NfL Plasma
[2024-04-18 07:56] LABS: Reference Lab Test Result 1.72
[2024-04-18 07:57] LABS: Reference Lab Test Name PTAU181
[2024-04-18 07:59] LABS: Reference Lab Test Result 0.92
[2024-04-20 07:25] LABS: Reference Lab Test Result E3/E4
== END 2024-04-12 10:41 | disposition home or self-care (01) ==
PROVIDERS: PCP Family Medicine; Visit Provider Psychiatry & Neurology Neurology
DX: D69.6 Thrombocytopenia, unspecified (principal); G31.84 Mild cognitive impairment of uncertain or unknown etiology; I10 Essential (primary) hypertension
CPT/HCPCS: 36415; 80061; 82607; 83921; 85025; 85055

== ENCOUNTER 2024-08-25 08:09 | Outpatient (CLI) | payer MEDICARE, OTHER, SELFPAY ==
--- NOTE | 2024-09-12 20:49 | WPDHOMESLEEP ---
Sleep Study - Home Unattended Date of Study: 08/25/24 Ordering Provider: SANTOS Vega Interpreting Provider: Deanne Flores, DO Home Sleep Study Type: Watch PAT Height: 1.8 m Weight: 86.183 kg Body Mass Index: 26.4 Neck Circumference (inches): 17.25 Shafter: 9 Reason for Sleep Study Daytime hypersomnia Sleep History The patient is a 69 year old male that had a sleep study ordered for evaluation of sleep apnea.? The patient frequently has trouble sleeping when he has a cold.? He denies waking up gasping for air throughout the night.? He denies having breathing problems at night observed by himself or others. ?He occasionally sweats excessively at night.? He denies having heart palpitations or irregular heartbeats during the night.? He occasionally falls asleep during the day but never while driving.? He denies sleep paralysis and cataplexy.? He occasionally has trouble at school or work due to sleepiness.? He rarely experiences vivid dreamlike scenes upon awakening or falling asleep.? He denies feeling afraid of going to sleep.? He rarely has nightmares.? He occasionally remembers his dreams.? He frequently has thoughts racing through his mind.? He occasionally feels sad, depressed and anxious.? Her brother has muscular tension.? He rarely notices parts of his body jerk.? He occasionally kicks during the night.? He denies having crawling and aching feelings in his legs but rarely has leg pain during the night.? He occasionally grinds his teeth during sleep but never awakened the morning jaw pain.? He is occasionally bothered by pain during the day but rarely awakened by pain during the night.? He rarely wakes up feeling stiff in the morning.? He rarely wakes up with sore or achy muscles.? He rarely wakes up with pain in the neck, spine and other joints.? He goes to bed at 9:30 p.m. on both weekdays and weekends.? It takes him less than 15 minutes fall asleep.? He wakes up 1-3 times throughout the night to urinate and is able to fall back asleep within 45 minutes up to an hour.? He wakes up at 6:00 a.m. on both weekdays and weekends.? He gets 5.5 hours of sleep per night.? He will stay in bed for 15 minutes after waking up in the morning.? He currently lives with his .? He denies consuming any caffeinated beverages within 2 hours of bedtime.? He denies engaging in physical exercise before bedtime.? He will read before falling asleep.? He denies watching television before falling asleep.? He will take naps in afternoon or the evening and they are refreshing.? He consumes 2-3 cups of caffeinated beverage per day.? He does consume 2 alcoholic beverages per day.? He denies tobacco and recreational drug use. [facility] Past Medical History Medical History Daytime sleepiness MCI (mild cognitive impairment) Hypogonadism male Insomnia Chronic low back pain Environmental allergies BPH (benign prostatic hyperplasia) Essential (primary) hypertension Atrial flutter with rapid ventricular response (~03/2023) IBS (irritable bowel syndrome) Paroxysmal atrial fibrillation Surgical History Surgical History History of cholecystectomy (~2012) History of radiofrequency ablation (RFA) procedure for cardiac arrhythmia (~2012) Family History Family History Mother Colorectal cancer Sibling Diabetes mellitus Hypertension Heart disease Social History Social History Smoking status: Never smoker Second hand tobacco smoke exposure: No Alcohol intake: current Drinks per week: 5 Substance use: never Substance use type: does not use Do You Feel Safe in your Home?: Yes Lack of Transportation: No Lack of Food: Never True Current Housing: I Have Housing Concerned About Future Housing: No Difficulty Paying Gas/Electric Bills: No Difficulty Paying for Meds: No Currently Unemployed: No Education: High School Diploma/GED Difficulty w/ Childcare or Family Care: No Living arrangements: with family Additional living arrangements comments: Occupation/Education: retired Gender identity (if verbalized by the patient): Male Sexual Orientation (if Verbalized by the Patient): Straight or Heterosexual Spiritual care concerns: No Agree to blood products: Yes Medications Home Medications ?Medication ?Instructions ?Recorded ?Confirmed ?Type calcium 333 mg-vit D3 200 1 tablet PO DAILY 04/01/23 07/26/24 History unit-magnesium 133 mg-zinc 5 mg tablet lutein 25 mg-zeaxanthin 5 mg 1 cap PO DAILY 04/01/23 07/26/24 History capsule (Ocuvite Lutein) polyethylene glycol 3350 17 17 g PO DAILY 04/01/23 07/26/24 History gram/dose oral powder (ClearLax) aspirin 81 mg tablet,delayed 81 mg PO DAILY 06/03/23 07/26/24 History release dronedarone 400 mg tablet (Multaq) 400 mg PO DAILY 06/03/23 07/26/24 History syringe with needle 3 mL 25 gauge #10 ea 12/28/23 07/26/24 Rx x 1 (Easy Touch) diltiazem HCl 120 mg 120 mg PO DAILY #90 caps 05/10/24 07/26/24 Rx capsule,extended release 24 hr testosterone cypionate 200 mg/mL 200 mg IM MONTHLY #3 mL 06/27/24 07/26/24 Rx intramuscular oil (Depo-Testosterone) sertraline 50 mg tablet 50 mg PO DAILY #90 tabs 07/26/24 07/26/24 Rx tamsulosin 0.4 mg capsule (Flomax) 0.4 mg PO QHS #90 caps 08/12/24 Rx zolpidem 5 mg tablet (Ambien) 5 mg PO QHS PRN insomnia #30 tabs 08/12/24 Rx diclofenac sodium 75 mg 75 mg PO DAILY PRN pain #90 tabs 08/15/24 Rx tablet,delayed release Sleep Procedure The sleep study was completed using [employer] a technically adequate device with seven channels: peripheral arterial tone, actigraphy, body position, snore, respiratory movement, pulse oximetry, sleep staging, and heart rate. Prior to using the device, the patient received verbal and written instructions for its application and was provided with the help desk phone number for additional telephonic instruction with 24-hour availability of qualified personnel to answer questions. The study was scored using CMS guidelines. Sleep Architecture The total recording time is 8 hrs, 44 min. The total sleep time is 8 hrs, 3 min. Sleep latency is 18 minutes. REM latency is 142 minutes. The patient had 5 episodes of waking. Sleep architecture shows 14.8% deep sleep, 74.3% light sleep, and (as % Total Sleep Time) showed NREM (Light 74.3%; Deep 14.8%), and a 10.9% stage REM. The patient spent 17.8% of total sleep time in the supine position. Sleep efficiency was 92.18. Respiratory Analysis The overall AHI (pAHI 4%:) is 0.6. The central AHI is 0.3. The AHI was 0.7 in NREM and 0.0 in REM sleep. The AHI was 0.8 in Supine and 0.6 in Non-supine sleep. Percent of Geremias Art respirations is 0.0. Oximetry Data The oxygen desaturation index (KENYETTA 4%:) is 0.6. The mean saturation is 95%, and the lowest saturation is 90%. Time spent with saturation < 88% is 0.0 minutes. Snoring Profile Snoring average intensity is 43 dB. The patient snored above 45 decibels for 97.6 minutes, 20.2% of sleep time. Cardiac Profile The average pulse rate is 42 beats per minutes. The lowest pulse rate is 35 bpm. The highest pulse rate reported is 83 bpm. Atrial fibrillation was not detected. Premature beats occur 1.9 per minute. Assessment and Plan Assessment and Plan (1) Snoring: Code(s): R06.83 - Snoring Status: Acute Assessment and Plan: The patient had an overall AHI of 0.6 with desaturation down to 90%. This is not consistent with sleep-disordered breathing. Data The data obtained during this sleep study is adequate for interpretation. Certification This sleep study has been reviewed by a board certified sleep medicine physician.
[2024-09-12 20:50] VITALS: BMI 26.4
== END 2024-08-26 11:58 | disposition home or self-care (01) ==
LOC: ANHCSM 08:09
PROVIDERS: PCP Family Medicine; Visit Provider Physician Assistant
DX: R06.83 Snoring (principal); G47.10 Hypersomnia, unspecified
CPT/HCPCS: 95800

== ENCOUNTER 2024-10-25 15:12 | Outpatient (CLI) | payer MEDICARE, OTHER, SELFPAY ==
--- NOTE | ~2024-10-25 | XR_ITS ---
EXAM: XR knee LT min 4V DATE: 10/25/2024 15:24 HISTORY: M25.562 - Pain in left knee/MEDIAL PAIN . COMPARISON: None available. FINDINGS: Normal mineralization. No fracture or dislocation. No lytic or blastic lesion. Mild medial joint space narrowing. Mild tricompartmental osteophytosis. Quadriceps enthesopathy. Moderate volume joint fluid. No erosion or periosteal change. Soft tissues within normal limits. IMPRESSION: Mild tricompartmental osteoarthritic arthritis. Moderate knee joint effusion. Reviewed, dictated and finalized at location K. IC SPEAKING INSTRUCTOR
--- OUTSIDE RECORDS SUMMARY | 2024-10-25 15:17 | XMS_ITS | Referral Summary ---
Author Organization [facility] Address [address] [place] [address] Care Team Providers Care Wad Compressor Operator Adjuster Name Role Phone Unavailable Primary Care Provider Unavailabl e Source Comments [facility],non-owned Affiliates and Associated Physician Practices is amultiple site organization consisting of ambulatory clinics and hospital sitesin [place], [place], [place] and [place]. This disclosure is being madepursuant to the Care Everywhere program and may not contain all information available regarding this patient. Last updated 18.[facility] [employer] Active Problems Problem Noted Date Diagnosed Date Palpitations 05/07/2018 Paroxysmal atrial fibrillation 04/04/2018 Hyperlipidemia 04/04/2018 Social History Tobacco Use Types Packs/Day Years Used Date Smoking Tobacco: Never Assessed Sex and Gender Information Value Date Recorded Sex Assigned at Not on file Gender Identity Not on file Sexual Orientation Not on file Last Filed Vital Signs Vital Sign Reading Time Taken Comments Blood Pressure 140/80 04/29/2018 5:36 PM CDT Pulse 58 04/29/2018 5:36 PM CDT Temperature - - Respiratory Rate - - Oxygen Saturation - - Inhaled Oxygen Concentration - - Weight - - Height - - Body Mass Index - - Plan of Treatment Not on file
--- OUTSIDE RECORDS SUMMARY | 2024-10-25 15:17 | XMS_ITS | Patient Health Summary ---
Author Organization [facility] Address [address] [place] [address] Care Team Providers Care Biomedical Manager Name Role Phone Unavailable Primary Care Provider Unavailabl e Note from [facility],non-owned Affiliates and Associated Physician Practices is amultiple site organization consisting of ambulatory clinics and hospital sitesin [place], [place], [place]. This disclosure is being madepursuant to the Care Everywhere program and may not contain all informatio navailable regarding this patient. Last updated 18.[facility] Active Problems Problem Noted Date Diagnosed Date [...] - - Body Mass Index - - Procedures * ECHOCARDIOGRAM 2D WITH DOPPLER(Performed 03/31/2018) * HOLTER MONITOR(Performed 03/25/2018) Results * ECHOCARDIOGRAM 2D WITH DOPPLER (03/31/2018) Jonathan Gaston MD ECHO ORDERABLES * HOLTER MONITOR (03/25/2018) Jonathan Gaston MD CARDIAC SERVICES ORD ERABLES
--- OUTSIDE RECORDS SUMMARY | 2024-10-25 15:17 | XMS_ITS | Clinical Summary ---
Author Organization [facility] Fetch MD Address [address] [place] [address] Care Team Providers Care Numerical Control Machine Machinist Name Role Phone Unavailable Primary Care Provider Unavailabl e Source Comments [facility],non-owned Affiliates and Associated Physician Practices is amultiple site organization consisting of ambulatory clinics and hospital sitesin [place], [place], [place] and [place]. This disclosure is being madepursuant to the Care Everywhere program and may not contain all information available regarding this patient. Last updated 18.[facility] Fetch MD Active Problems Problem Noted Date Diagnosed Date [...] Mass Index - - Plan of Treatment Health Maintenance Due Date Last Done Comments COLOGUARD (AGES 45-75) - COL ON CA SCREENING 1957 COLON MONITORING 1957 COLONOSCOPY - COLON CA SCREENING 1957 CT COLONOGRAPHY - COLON CA SCREENING 1957 Colorectal Cancer Screening 1957 FIT - COLON CA SCREENING 1957 FLEX SIG - COLON CA SCREENING 1957 LIPID TESTING 1957 HEPATITIS C SCREENING 04/27/1975 DTAP/TDAP/TD VACCINES (1 - Tdap) 1976 PNEUMOCOCCAL VACCINE 50+ (1 of 1 - PCV) 2007 ZOSTER VACCINE (1 of 2) 2007 COVID-19 VACCINE ( - 2023-2 5 season) 2024 INFLUENZA VACCINE (#1) 2024 DEPRESSION SCREENING 09/07/2024 Respiratory Syncytial Virus (RSV) Vaccine Pt: or over 60 yrs (1 - 1-dose 75+ series) 2032 HEPATITIS B VACCINE Aged Out No longe r eligible based on patient's age to complete this topic HIB VACCINE Aged Out No longer eligi ble based on patient's age to complete this topic HPV VACCINE Aged Out No longer eligi ble based on patient's age to complete this topic MENINGOCOCCAL (Group B) VACCINE Aged Out No longer eligible based on patient's age to complete this topic MENINGOCOCCAL VACCINE Aged Out No igor ene eligible based on patient's age to complete this topic
--- OUTSIDE RECORDS SUMMARY | 2024-10-25 15:17 | XMS_ITS | Continuity of Care Document ---
Author Name [facility] Organization [facility] Care Team Providers Care Manager Plumbing Name Role Phone [facility] Unavailable Unavailable Medications Combined list of outpatient medications from Department of Defense and Veterans Affairs facilities.Medications provided include 1) outpatient medications from the last 15 months, and 2) patient-reported medications. Medication Details Route Status Patient Instructions Prescription Expires Prescription Number Last Dispense Date Ordering Provider Order Date Order Qty Source DICLOFENAC SODIUM (diclofenac sodium), 75 MG, TABLET DR, ORAL, ADVAGEN PHARMA, 500 ea. BOTTLE Active [id number] 2023 30 Pharmac y Data Transac tion Service Facilit y DILTIAZEM 24HR ER (CD) (diltiazem HCl), 120 MG, CAP ER 24H, ORAL, [employer] 90 ea. BOTTLE Cancele d [id number] : 2023 0 Pharmac y Data Transac tion Service Facilit y DILTIAZEM 24HR ER (CD) (diltiazem HCl), 120 MG, CAP ER 24H, ORAL, [employer] 90 ea. BOTTLE Cancele d [id number] : 2023 0 Pharmac y Data Transac tion Service Facilit y DILTIAZEM 24HR ER (CD) (diltiazem HCl), 120 MG, CAP ER 24H, ORAL, [employer] 90 ea. BOTTLE Cancele d [id number] : 2022 0 Pharmac y Data Transac tion Service Facilit y DILTIAZEM 24HR ER (CD) (diltiazem HCl), 120 MG, CAP ER 24H, ORAL, [employer] 90 ea. BOTTLE Active [id number] 2023 90 Pharmac y Data Transac tion Service Facilit y DILTIAZEM 24HR ER (CD) (diltiazem HCl), 120 MG, CAP ER 24H, ORAL, INGENUS PHARMAC, 90 ea. BOTTLE Cancele d [id number] : 2023 0 Pharmac y Data Transac tion Service Facilit y ELIQUIS (APIXABAN), 5 MG, TABLET, ORAL, BMS PRIMARYCARE , 60 ea. BOTTLE Cancele d [id number] : 2022 0 Pharmac y Data Transac tion Service Facilit y FLUAD QUAD (influenza vaccine quadrivalen t (65 yr up)/MF59C.1 /PF), 60MCG/.5ML, SYRINGE, INTRAMUSC, [employer] .5 ml SYRINGE Active [id number] 2023 0.5 Pharmac y Data Transac tion Service Facilit y MULTAQ (DRONEDARON E HYDROCHLORI DE), 400 MG, TABLET, ORAL, SANOFI-AVEN TIS, 60 ea. BOTTLE Active [id number] 4 2023 90 Pharmac y Data Transac tion Service Facilit y MULTAQ (DRONEDARON E HYDROCHLORI DE), 400 MG, TABLET, ORAL, SANOFI-AVEN TIS, 60 ea. BOTTLE Cancele d [id number] : 2022 0 Pharmac y Data Transac tion Service Facilit y MULTAQ (DRONEDARON E HYDROCHLORI DE), 400 MG, TABLET, ORAL, SANOFI-AVEN TIS, 60 ea. BOTTLE Active [id number] 2023 90 Pharmac y Data Transac tion Service Facilit y TAMSULOSIN HCL (TAMSULOSIN HCL), 0.4 MG, CAP.SR 24H, ORAL, ZYDUS PHARMACEU, 1000 ea. BOTTLE Active [id number] 2023 90 Pharmac y Data Transac tion Service Facilit y TAMSULOSIN HCL (TAMSULOSIN HCL), 0.4 MG, CAP.SR 24H, ORAL, ZYDUS PHARMACEU, 1000 ea. BOTTLE Active [id number] 2023 90 Pharmac y Data Transac tion Service Facilit y TESTOSTERON E CYPIONATE (testostero ne cypionate), 200 MG/ML, VIAL, INTRAMUSC, [employer] 1 ml VIAL Cancele d [id number] : 2023 0 Pharmac y Data Transac tion Service Facilit y VITAMIN D2 (ergocalcif ariadne (vitamin D2)), 1250 MCG, CAPSULE, ORAL, [employer] [place], 100 ea. BOTTLE Active [id number] 2023 12 Pharmac y Data Transac tion Service Facilit y ZOLPIDEM TARTRATE (zolpidem tartrate), 5 MG, TABLET, ORAL, AVKARE, 1000 ea. BOTTLE Active [id number] 2023 30 Pharmac y Data Transac tion Service Facilit y Immunizations Combined list of available immunizations from the Department of Defense and Veterans Affairs facilities. 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 ) 2 1995 Unknown, Provider 53 () complet typhoid vaccine, parentera l, acetone-k illed, dried ([place] ) [facility] hepatitis B vaccine, adult dosage 2 1995 Unknown, Provider 43 () complet ed hepatitis B vaccine, adult dosage DoD tuberculin skin test; purified protein derivative solution, intradermal 1 1995 Unknown, Provider 96 () complet ed tuberculi n skin test; purified protein derivativ e solution, intraderm [facility] tetanus and diphtheria toxoids, adsorbed, preservative free, for adult use (2 Lf of tetanus toxoid and 2 Lf of diphtheria toxoid) 1 1995 Unknown, Provider 09 () complet ed tetanus and diphtheri a toxoids, adsorbed, preservat raul free, for adult use (2 Lf of tetanus toxoid and 2 Lf of diphtheri a toxoid) DoD hepatitis B vaccine, adult dosage 1 1995 Unknown, Provider 43 () complet ed hepatitis B vaccine, adult dosage DoD hepatitis A vaccine, adult dosage 1 1995 Unknown, Provider 52 () complet ed hepatitis A vaccine, adult dosage DoD yellow fever vaccine 1 1994 Unknown, Provider 37 () complet ed yellow fever vaccine DoD meningococcal polysaccharid e vaccine (MPSV4) 1 1994 Unknown, Provider 32 () complet ed meningoco ccal polysacch aride vaccine (MPSV4) DoD vaccinia (smallpox) vaccine 1 1983 Unknown, Provider 75 () complet ed vaccinia (smallpox ) vaccine DoD Social History Combined list of available smoking, tobacco, and other social history from Department of Defense and Veterans Affairs facilities. Social History Type Response Date Comment [facility] e This section is an empty social history section. DoD
--- OUTSIDE RECORDS SUMMARY | 2024-10-25 15:17 | XMS_ITS | Clinical Summary ---
Author Organization [facility] Address [address] [place] [address] Phone Care Team Providers Care Drilling Field Specialist Name Role Phone REZA SWAN M.D. Primary Care Provider [phone] REZA SWAN MD Unavailable [phone] Reason for Visit and Chief Complaint The Chief Complaint is: pt is having a pain left side , almost constant, is not worse when he exercises and he lifts weights and runs Problems Includes: Problems addressed during this encounter and other active Problems All Visits Onset Date Resolved Date Provider Condition S tatus Unspecified atrial fibrillation 06/08/2019 REZA SWAN MD Active Last Documented On 9 2:24PM ; [facility] Right lower quadrant abdomin al swelling, mass and lump 12/15/2018 REZA SWAN MD Active Last Documented On 9 3:00PM ; [facility] Other fatigue 12/15/2018 REZA SWAN MD A ctive Last Documented On 9 3:00PM ; [facility] Encntr for general adult med ical exam w/o abnormal findings 12/15/2018 REZA SWAN MD Active Last Documented On 9 3:00PM ; [facility] Encounter for screening for malignant neoplasm of colon 12/15/2018 REZA SWAN MD Active Last Documented On 9 7:30PM ; [facility] Encounter for screening for malignant neoplasm of prostate 12/15/2018 REZA SWAN MD Active Last Documented On 9 3:00PM ; [facility] Functional diarrhea 10/19/2016 REZA Lott MD Active Last Documented On 7 5:17PM ; [facility] Plan of Treatment - Return to the clinic if condition worsens or new symptoms arise - Last Documented On 08/06/2019 12:25PM ; [facility] - Follow-up visit 3 months - Last Documented On 08/06/2019 12:25PM ; [facility] PLAN [Use for s.o.a.p. note free text]. - Last Documented On 08/06/2019 12:25PM ; [facility] Declines pain meds. - Last Documented On 08/06/2019 12:25PM ; [facility] Assessments Includes: Assessments from this encounter No Assessments Recorded Medical Equipment - Implanted Devices Includes: Current Devices No Medical Equipment Recorded Medications Includes: Medications discussed during this encounter and other current Medications Current Medications (continue as prescribed) Gabapentin 300 MG Oral Capsule 11/03/2019 Provider: REZA SWAN MD Diagnosis: Low back pain One tablet at bed time Last Documented On 0 12:32PM By REZA SWAN MD ; [facility] EQ One Daily Mens 50+ Oral Tablet 07/20/2019 Provide r: Diagnosis: Last Documented On 9 1:22PM By ELVA HERNANDEZ ; [facility] Ocuvite-Lutein Oral Capsule 10/13/2016 Provider: Diagnosis: Last Documented On 10/13/2016 2:34PM By LEANDRO HERNANDEZ ; [facility] Medications Administered Includes: Administered Medications from this encounter No Administered Medications Recorded Vital Signs Includes: Vital Signs from this encounter Vital Name 07/20/2019 01:17P Blood Pressure Sitting (mmHg) 142/86 Pulse Rate-Sitting (bpm) 53 Height (in) 70 Weight (lb) 197 Body Mass Index (kg/m2) 28.3 Body Surface Area (m2) 2.1 Oxygen Saturation (%) 98 Last Documented: On 07/20/2019 1:21PM ; [facility] Results Includes: Results discussed during this encounter No Results Recorded For Specified Dates History of Present Illness Includes: History of Present Illness from this encounter BARBARA FULLER is a 64 year old male. - Allergy list reviewed - Medication reconciliation performed - No vertigo Chronic pain: no meds. Locations: right flank. Onset: long time ago. Timing: constant. Diagnoses: ____. Severity: 5-/. Aggravating: none. Able to run and lift weights without problems. Relieving: ibuprofen sometimes relieves pain. Quality: usually dull, sometime sharp. Associated symptoms: constipation. Back pain- low back: none currently. Onset: years. No recent injury. Location: low back, no radiation to legs. Quality: sharp. Severity: excruciating. Modifying factors: worse with sitting prolonged periods of time (ex- riding in car for 5 hrs). Associated symptoms: No numbness, tingling, weakness. Patient previously saw a substitute teacher for the constipation and recommended medications only. No colonoscopy recently. Status post cholecystectomy. Social History Description Last Updated Smoking status : Never smoker 11/03/2019 Last Documented On 9 1:17PM ; [facility] Social history: Tobacco: Non e. Alcohol: 4 beers per week. Drugs: None. Exercise: Daily some with running. 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 Last Documented On 9 1:17PM ; [facility] Work history 10/19/2016 Last Documented On 9 1:17PM ; [facility] Procedures and Surgical History Includes: Procedures from this encounter Procedures Code Diagnosis Performing Provider Service L ocation Service Date continue current medication Last Documented On 9 12:23PM ; [facility] plan of care reviewed and agreed to Last Documented On 9 12:23PM ; [facility] Clinical summary provided to patient Last Documented On 9 12:23PM ; [facility] Medical History Includes: Medical History addressed during this encounter Description Last Updated Denies a fear of falling. 07/20/2019 Last Documented On 9 12:25PM ; [facility] Has had no fall in the last 12 months. 1 09/19/2018 Last Documented On 9 12:25PM ; [facility] Family History Includes: Family History addressed during this encounter Description Last Updated Family history: Mother from rectal cancer at age 82. Father's history unknown. 4 brothers with diabetes or overweight. 2 children that are healthy 12/15/2018 Last Documented On 9 1:17PM ; [facility] Fraternal history of cancer myeloma 10/08 Last Documented On 9 1:17PM ; [facility] Maternal history of cancer colon 017 Last Documented On 9 1:17PM ; [facility] Review of Systems Includes: Review of Systems from this encounter Systemic: No fever, no chills, and no night sweats. Head: No headache and no sinus pain. Eyes: No vision problems and no itching of the eyes. Otolaryngeal: No earache, no nasal discharge, no hoarseness, and no sore throat. Cardiovascular: No chest pain or discomfort, no palpitations, and the heart rate was not fast. Pulmonary: No dyspnea, no cough, and no wheezing. Gastrointestinal: No heartburn. No nausea, no vomiting, and no diarrhea. Mental Status Includes: Mental Status from this encounter No Mental Status Recorded Functional Status Includes: Functional Status from this encounter No Functional Status Recorded Physical Exam Includes: Physical Exam from this encounter Allergies Includes: Active Allergies No Known Allergies Encounters Encounter Provider Location Date Check-In Time Check-Out Time Diagnosis PROBLEM VISIT REZA SWAN MD [facility]- 9 1:15PM 1:45PM Insurance Includes: Active Insurance Policies Plan Name Member ID Group # Subscriber Relationship Effect raul Dates - [facility] [id number] Pablito FULLER Self Clinical Notes Includes: Clinical Notes from this encounter No Clinical Notes Recorded
--- OUTSIDE RECORDS SUMMARY | 2024-10-25 15:17 | XMS_ITS | Clinical Summary ---
Author Organization [facility] Address [address] [place] [address] Phone Care Team Providers Care Radioisotope Production Operator Name Role Phone REZA SWAN M.D. 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 CHANELL GODINEZ Problems Includes: Problems addressed during this encounter and other active Problems All Visits Onset Date Resolved Date Provider Condition S tatus Unspecified atrial fibrillation 06/08/2019 REZA SWAN MD Active Last Documented On 9 2:24PM ; [facility] Right lower quadrant abdomin al swelling, mass and lump 12/15/2018 REZA SWAN MD Active Last Documented On 9 3:00PM ; [facility] Other fatigue 12/15/2018 REZA SWAN MD A ctive Last Documented On 9 3:00PM ; [facility] Encntr for general adult med ical exam w/o abnormal findings 12/15/2018 REZA SWAN MD Active Last Documented On 9 3:00PM ; [facility] Encounter for screening for malignant neoplasm of colon 12/15/2018 REZA SWAN MD Active Last Documented On 9 7:30PM ; [facility] Encounter for screening for malignant neoplasm of prostate 12/15/2018 REZA SWAN MD Active Last Documented On 9 3:00PM ; [facility] Functional diarrhea 10/19/2016 REZA Lott MD Active Last Documented On 7 5:17PM ; [facility] Plan of Treatment Will obtain EKG. Referral to cardiology. Follow up in 1 week. If symptoms worsen or episodes become prolonged go to ER. - Last Documented On 02/26/2018 3:56PM ; [facility] Referrals To Diagnosis [place] [place] [facility]UL[facility] Unspeci fied atrial fibrillation Note: Patient would like to see Dr. Jonathan Gaston at [facility] #[phone] Last Documented On 8 8:43AM ; [facility] Assessments Includes: Assessments from this encounter Findings - Atrial fibrillation [I48.91 - Unspecified atrial fibrillation] - Last Documented On 02/26/2018 3:56PM ; [facility] Medical Equipment - Implanted Devices Includes: Current Devices No Medical Equipment Recorded Medications Includes: Medications discussed during this encounter and other current Medications Current Medications (continue as prescribed) Gabapentin 300 MG Oral Capsule 11/03/2019 Provider: REZA SWAN MD Diagnosis: Low back pain One tablet at bed time Last Documented On 0 12:32PM By REZA SWAN MD ; [facility] EQ One Daily Mens 50+ Oral Tablet 07/20/2019 Provide r: Diagnosis: Last Documented On 9 1:22PM By ELVA HERNANDEZ ; [facility] Ocuvite-Lutein Oral Capsule 10/13/2016 Provider: Diagnosis: Last Documented On 10/13/2016 2:34PM By LEANDRO HERNANDEZ ; [facility] Medications Administered Includes: Administered Medications from this encounter No Administered Medications Recorded Vital Signs Includes: Vital Signs from this encounter Vital Name 02/26/2018 03:23P Blood Pressure Sitting L 138/90 BP Cuff Size Regular Pulse Rate-Sitting (bpm) 50 Pulse Rhythm Regular Respiration Rate (breaths/min) 18 Height (in) 70 Weight (lb) 202 Body Mass Index (kg/m2) 29.0 Body Surface Area (m2) 2.1 Oxygen Saturation (%) 98 Last Documented: On 02/26/2018 3:45PM ; [facility] Results Includes: Results discussed during this encounter No Results Recorded For Specified Dates History of Present Illness Includes: History of Present Illness from this encounter BARBARA FULLER is a 62 year old male. - Medication list reviewed with patient. - Feeling fine - Not feeling poorly (malaise) - Palpitations intermittent 1-2 times a day lasting a few beats - No chest pain or discomfort Patient is here today because he has been intermittent sensation of abnormal heart rhythm for the last few months. He has a history of AFIB he used to see Dr. Gaston at [facility] in [place], [place] and had an ablation done with Dr. Godinez at [facility] in 2014 and his symptoms resolved. He denies any other symptoms, no chest pain, no shortness of breath. Social History Description Last Updated Smoking status : Never smoker 02/26/2018 Last Documented On 8 3:56PM ; [facility] Procedures and Surgical History Includes: Procedures from this encounter Procedures Code Diagnosis Performing Provider Service L ocation Service Date Clinical summary provided to patient Last Documented On 8 3:46PM ; [facility] Medical History Includes: Medical History addressed during this encounter No Medical History Recorded Family History Includes: Family History addressed during this encounter No Family History Recorded Review of Systems Includes: Review of Systems from this encounter Systemic: No fever. Head: No headache. Eyes: No eye symptoms. Otolaryngeal: No otolaryngeal symptoms. Cardiovascular: Palpitations. Pulmonary: No pulmonary symptoms. Gastrointestinal: No gastrointestinal symptoms. Skin: No skin symptoms. Mental Status Includes: Mental Status from this encounter Description Oriented to time, place, and person Functional Status Includes: Functional Status from this encounter No Functional Status Recorded Physical Exam Includes: Physical Exam from this encounter Allergies Includes: Active Allergies No Known Allergies Encounters Encounter Provider Location Date Check-In Time Check-Out Time Diagnosis PROBLEM VISIT [facility]- 02/27/20 18 4:00PM 3:43PM Atrial Fibrillation Insurance Includes: Active Insurance Policies Plan Name Member ID Group # Subscriber Relationship Effect raul Dates - [facility] [id number] Pablito FULLER Self Clinical Notes Includes: Clinical Notes from this encounter No Clinical Notes Recorded
--- OUTSIDE RECORDS SUMMARY | 2024-10-25 15:17 | XMS_ITS | Clinical Summary ---
Author Organization [address] Address [address] [place] [address] Care Team Providers Care Guest Relations Associate Name Role Phone Fermin Hendrickson MD Primary Care Provider Allergies No known active allergies Medications tamsulosin (FLOMAX) 0.4 mg capsule Take 0.4 mg by mouth daily. Active vit A,C and W-sfrfyb-slgnqv ls (OCUVITE) 300 mcg-200 mg-27 mg-2 mg Tablet Take 1 Tablet by mouth daily. Active zolpidem (AMBIEN) 5 mg tablet Take 5 mg by mouth nightly as needed for Insomnia. Active aspirin (ECOTRIN EC) 81 mg Tablet, Delayed Release (E.C.) Take 81 mg by mouth daily. Active diltiaZEM (CARDIZEM CD) 120 mg Controlled Delivery 24 hour capsuleIndicati ons:Palpitation s TAKE 1 CAPSULE DAILY 90 Capsule 1 01/21/2024 Active Active Problems Problem Noted Date Diagnosed Date Palpitations 06/10/2018 Encounters Date Type Department Care Team Description 09/13/2024 External Device Data STL ABSTRACTION Provider, Abstract 08/01/2024 2:30 PM DIRECTOR OF PRODUCT MANAGEMENT Office Visit [facility] - [address] [place] [phone] [facility] [address] [place] [address] Mary Hopkins NP Paroxysmal atrial fibrillation (CMS/HCC) (Primary Dx); manager intermediate (current) use of anticoagulants; Palpitations 07/27/2024 Refill [facility] - [address] [facility] [phone] [facility] [address] [place] [address] Kee Bear MD Paroxysmal atrial fibrillation (CMS/HCC) from Last 3 Months Social History Tobacco Use Types Packs/Day Years Used Date Smoking Tobacco: Never Tobacco Cessation:Counseling Given: Not Answered Sex and Gender Information Value Date Recorded Sex Assigned at Not on file Legal Sex Male 11:57 PM CDT Gender Identity Not on file Sexual Orientation Not on file Last Filed Vital Signs Vital Sign Reading Time Taken Comments Blood Pressure 130/80 08/01/2024 2:00 PM DIRECTOR OF PRODUCT MANAGEMENT Pulse 49 08/01/2024 2:00 PM DIRECTOR OF PRODUCT MANAGEMENT Temperature - - Respiratory Rate - - Oxygen Saturation - - Inhaled Oxygen Concentration - - Weight 87.1 kg (192 lb) 08/01/2024 2:00 PM DIRECTOR OF PRODUCT MANAGEMENT Height 180.3 cm (5' 11 ) 08/01/2024 2:00 PM DIRECTOR OF PRODUCT MANAGEMENT Body Mass Index 26.78 08/01/2024 2:00 PM DIRECTOR OF PRODUCT MANAGEMENT Plan of Treatment Upcoming Encounters Date Type Department Care Team (Late st Contact Info) Description 02/07/2025 11:30 AM CDT Office Visit [facility] - [address] [facility] [phone] [facility] [place] [place] [phone] [place] [address] [phone] Health Maintenance Due Date Last Done Comments Pre-Diabetes and Diabetes Screening 1955 DTAP/TDAP/TD VACCINES (1 - Tdap) 1976 FIT-DNA Q 3 years 2002 FIT/FOBT Q 1 year 2002 Flex Sig/CT Colonography Q 5 years 2002 PNEUMOCOCCAL VACCINE 65+ YEA RS (1 of 1 - PCV) 2007 INFLUENZA VACCINE (#1) 2024 08/18/2022 COLORECTAL SCREENING 12/14/2031 12/13/2021 Colorectal Cancer Screening 12/14/2031 RSV VACCINE (60+ or ) (1 - 1-dose 75+ series) 2032 ZOSTER VACCINE Completed 01/15/2022, 11/07/2021 Procedures Procedure Name Priority Date/Time Associated Diagnosis Comments IN ECG ROUTINE ECG W/LEAST 12 LDS W/I&R Routine 08/01/2024 2:30 PM DIRECTOR OF PRODUCT MANAGEMENT Paroxysmal atrial fibrillation (CMS/HCC) senior living (current) use of anticoagulants Palpitations from Last 3 Months Results * IN ECG ROUTINE ECG W/LEAST 12 LDS W/I&R (08/01/2024 2:30 PM DIRECTOR OF PRODUCT MANAGEMENT) Narrative Jenn Lennon L - 08/01/2024 2:30 PM DIRECTOR OF PRODUCT MANAGEMENT Mary Hopkins NP 08/01/2024 2:38 PM EKG Date/Time: 08/01/2024 2:30 PM Performed by: Kee Bear MD Authorized by: Kee Bear MD Procedure Note Mary Hopkins NP - 08/01/2024 2:28 PM CST EKG Date/Time: 08/01/2024 2:30 PM Performed by: Kee Bear MD Authorized by: Kee Bear MD Annotated Image us Kee Bear MD ECG ORDERABLES Final Resu lt from Last 3 Months Insurance [employer] O [facility] [employer] [facility] [place] Care Teams Guest Relations Associate Relationship Specialty Start Date End Date Fermin Hendrickson MD [address] [place] [address] PCP - General Family Practice 01/14/24
--- OUTSIDE RECORDS SUMMARY | 2024-10-25 15:17 | XMS_ITS | Clinical Summary ---
Author Organization [facility] Address [address] [place] [address] Phone Care Team Providers Care Photovoltaic Subcontractor Name Role Phone REZA SWAN M.D. Primary Care Provider [phone] REZA SWAN MD Unavailable [phone] Reason for Visit and Chief Complaint The Chief Complaint is: Pt is here for an annual check up Problems Includes: Problems addressed during this encounter and other active Problems Current Visit Onset Date Resolved Date Provider Conditio n Status Right lower quadrant abdominal swelling, mass and lump 12/15/2018 REZA SWAN MD Active Last Documented On 9 3:00PM ; [facility] Other fatigue 12/15/2018 REZA SWAN MD A ctive Last Documented On 9 3:00PM ; [facility] Encntr for general adult med ical exam w/o abnormal findings 12/15/2018 REZA SWAN MD Active Last Documented On 9 3:00PM ; [facility] Encounter for screening for malignant neoplasm of colon 12/15/2018 REZA SWAN MD Active Last Documented On 9 7:30PM ; [facility] Encounter for screening for malignant neoplasm of prostate 12/15/2018 REZA SWAN MD Active Last Documented On 9 3:00PM ; [facility] Past Visits Onset Date Resolved Date Provider Condition Status Unspecified atrial fibrillation 06/08/2019 REZA SWAN MD Active Last Documented On 9 2:24PM ; [facility] Functional diarrhea 10/19/2016 REZA Lott MD Active Last Documented On 7 5:17PM ; [facility] Plan of Treatment - Return to the clinic if condition worsens or new symptoms arise - Last Documented On 12/15/2018 7:31PM ; [facility] - Follow-up visit - Last Documented On 12/15/2018 7:31PM ; [facility] PLAN [Use for s.o.a.p. note free text]. - Last Documented On 12/15/2018 7:31PM ; [facility] Referrals To Diagnosis Maintenance Fitter REZA michael for screening for malignant neoplasm of colon Note: in [facility] for screening.[facility] Last Documented On 0 2:45PM ; [facility] Assessments Includes: Assessments from this encounter No [...] 0 12:32PM By REZA SWAN MD ; [facility] EQ One Daily Mens 50+ Oral Tablet 07/20/2019 Provide r: Diagnosis: Last Documented On 9 1:22PM By ELVA HERNANDEZ ; [facility] Ocuvite-Lutein Oral Capsule 10/13/2016 Provider: Diagnosis: Last Documented On 10/13/2016 2:34PM By LEANDRO HERNANDEZ ; [facility] Medications Administered Includes: Administered Medications from this encounter No Administered Medications Recorded Vital Signs Includes: Vital Signs from this encounter Vital Name 12/15/2018 02:30P Blood Pressure Sitting R 132/82 BP Cuff Size Regular Pulse Rate-Sitting (bpm) 59 Pulse Rhythm Regular Respiration Rate (breaths/min) 16 Height (in) 70 Weight (lb) 199.8 Body Mass Index (kg/m2) 28.7 Body Surface Area (m2) 2.1 Oxygen Saturation (%) 96 Last Documented: On 12/15/2018 2:34PM ; [facility] Results Includes: Results discussed during this encounter No Results Recorded For Specified Dates History of Present Illness Includes: History of Present Illness from this encounter BARBARA FULLER is a 63 year old male. - Medication list reviewed. This patient is here for annual physical. He complains of a mass on the right side of his abdomen which is present only in the mornings when he first gets up. He states it's firm. He's unable to find at this time. Sometimes it goes away after a bowel movement. He denies bloody stools. He needs referral for colonoscopy for screening. Patient also complains of extreme fatigue with increased urinary output. This has been ongoing for several years. It will last an hour to a few days. He reports slow heart rates in the 40s but he's been a runner for many years. He's previously had a cardiac ablation 6-7 years ago and had followed up with numerical tool programmer and was told there was no problem. He's had seen a force adjustment supervisor and his heart cleared. He requests blood work. Medications [id number] Ocuvite and aspirin. Allergies none. Surgeries cardiac ablation and cholecystectomy. Illnesses history of age. Fibrillation treated by ablation. Social history: Tobacco: None. Alcohol: 4 beers per week. Drugs: None. Exercise: Daily some with running. Diet: Tries to eat healthy. Family history: Mother from rectal cancer at age 82. Father's history unknown. 4 brothers with diabetes or overweight. 2 children that are healthy. Social History Description Last Updated Social history: Tobacco: Non e. Alcohol: 4 beers per week. Drugs: None. Exercise: Daily some with running. Diet: Tries to eat healthy 12/15/2018 Last Documented On 9 7:31PM ; [facility] Smoking status : Never smoker 12/15/2018 Last Documented On 9 7:31PM ; [facility] Procedures and Surgical History Includes: Procedures from this encounter Procedures Code Diagnosis Performing Provider Service L ocation Service Date diet low salt, low cholesterol Last Documented On 9 7:07PM ; [facility] continue current medication Last Documented On 9 7:07PM ; [facility] plan of care reviewed and agreed to Last Documented On 9 7:07PM ; [facility] Discussed Exercise daily exercise for 30 -60 min Last Documented On 9 7:07PM ; [facility] Clinical summary provided to patient Last Documented On 9 7:07PM ; [facility] Medical History Includes: Medical History addressed during this encounter Description Last Updated Surgeries cardiac ablation a nd cholecystectomy. ~Illnesses history of age. Fibrillation treated by ablation 12/15/2018 Last Documented On 9 7:31PM ; [facility] Family History Includes: Family History addressed during this encounter Description Last Updated Family history: Mother from rectal cancer at age 82. Father's history unknown. 4 brothers with diabetes or overweight. 2 children that are healthy 12/15/2018 Last Documented On 9 7:31PM ; [facility] Review of Systems Includes: Review of Systems from this encounter Systemic: No fever, no chills, no night sweats, and no edema. Head: No headache and no sinus pain. Neck: No neck pain and no neck stiffness. Eyes: No vision problems and no itching of the eyes. Otolaryngeal: No earache, no nasal discharge, no hoarseness, and no sore throat. Cardiovascular: No chest pain or discomfort, no palpitations, and the heart rate was not fast. Pulmonary: No dyspnea and not expressed as feeling short of breath. No cough and no wheezing. Gastrointestinal: Normal appetite and no heartburn. No nausea, no vomiting, and no diarrhea. Genitourinary: No hematuria and no dysuria. Endocrine: No polydipsia and no excessive sweating. Musculoskeletal: No localized joint pain and no localized joint stiffness. Neurological: No dizziness, no vertigo, no fainting, no motor disturbances, and no sensory disturbances. Psychological: No anxiety, no depression, and no sleep disturbances. Skin: No pruritus and no rash. Mental Status Includes: Mental Status from this encounter Description Oriented to time, place, and person No anxiety Functional Status Includes: Functional Status from this encounter No Functional Status Recorded Physical Exam Includes: Physical Exam from this encounter Allergies Includes: Active Allergies No Known Allergies Encounters Encounter Provider Location Date Check-In Time Check-Out Time Diagnosis CHECK UP REZA SWAN MD [facility]- 9 2:30PM 3:15PM Insurance Includes: Active Insurance Policies Plan Name Member ID Group # Subscriber Relationship Effect raul - [facility] [id number] E MIRTHA FULLER Self Clinical Notes Includes: Clinical Notes from this encounter No Clinical Notes Recorded
--- OUTSIDE RECORDS SUMMARY | 2024-10-25 15:17 | XMS_ITS | Clinical Summary ---
Author Organization [facility] Address [address] [place] [address] Phone Care Team Providers Care Acid Plant Helper Name Role Phone REZA SWAN M.D. Primary Care Provider [phone] REZA SWAN MD Unavailable [phone] Reason for Visit and Chief Complaint The Chief Complaint is: Left eye blood shot since last week, along with Rt side pain that had neverwent away and feels run down all the time Problems Includes: Problems addressed during this encounter and other active Problems All Visits Onset Date Resolved Date Provider Condition S tatus Unspecified atrial fibrillation 06/08/2019 REZA SWAN MD Active Last Documented On 9 2:24PM ; [facility] Right lower quadrant abdomin al swelling, mass and lump 12/15/2018 REZA SWAN MD Active Last Documented On 9 3:00PM ; [facility] Other fatigue 12/15/2018 REZA SWAN MD A ctive Last Documented On 9 3:00PM ; [facility] Encntr for general adult med ical exam w/o abnormal findings 12/15/2018 REZA SWAN MD Active Last Documented On 9 3:00PM ; [facility] Encounter for screening for malignant neoplasm of colon 12/15/2018 REZA SWAN MD Active Last Documented On 9 7:30PM ; [facility] Encounter for screening for malignant neoplasm of prostate 12/15/2018 REZA SWAN MD Active Last Documented On 9 3:00PM ; [facility] Functional diarrhea 10/19/2016 REZA Lott MD Active Last Documented On 7 5:17PM ; [facility] Plan of Treatment - Return to the clinic if condition worsens or new symptoms arise - Last Documented On 11/26/2019 7:20PM ; [facility] - Follow-up visit 3 month - Last Documented On 11/26/2019 7:20PM ; [facility] PLAN [Use for s.o.a.p. note free text]. - Last Documented On 11/26/2019 7:20PM ; [facility] Assessments Includes: Assessments from this encounter No Assessments Recorded Medical Equipment - Implanted Devices Includes: Current Devices No Medical Equipment Recorded Medications Includes: Medications discussed during this encounter and other current Medications Discontinued / Stopped on this date on 10/13/2016 Aspir-81 Oral Tablet Delayed Release Prov ider: Diagnosis: Last Documented On 0 11:55AM By LEANDRO HERNANDEZ ; [facility] New / Renewed during this visit REZA SWAN MD on 11/03/2019 Gabapentin 300 MG Oral Capsule Provider: REZA SWAN MD 30 day supply: 30 capsule, 1 refills Diagnosis: Low back pain One tablet at bed time Pharmacy: [facility] [address], [id number] - Last Documented On 0 12:32PM By REZA SWAN MD ; [facility] Current Medications (continue as prescribed) EQ One Daily Mens 50+ Oral Tablet 07/20/2019 Provide r: Diagnosis: Last Documented On 9 1:22PM By ELVA HERNANDEZ ; [facility] Ocuvite-Lutein Oral Capsule 10/13/2016 Provider: Diagnosis: Last Documented On 10/13/2016 2:34PM By LEANDRO HERNANDEZ ; [facility] Medications Administered Includes: Administered Medications from this encounter No Administered Medications Recorded Vital Signs Includes: Vital Signs from this encounter Vital Name 11/03/2019 11:57A 11/03/2019 11: 55A Blood Pressure Sitting L 158/86 144/80 BP Cuff Size Regular Pulse Rate-Sitting (bpm) 45 Pulse Rhythm Regular Height (in) 71 Weight (lb) 202.4 Body Mass Index (kg/m2) 28.2 Body Surface Area (m2) 2.1 Oxygen Saturation (%) 96 Last Documented: On 11/03/2019 11:57A M ; [facility] On 11/03/2019 11:56AM ; [facility] Results Includes: Results discussed during this encounter No Results Recorded For Specified Dates History of Present Illness Includes: History of Present Illness from this encounter BARBARA FULLER is a 64 year old male. - Allergy list reviewed - Medication reconciliation performed left eye blood shot. No vision loss, pain, itching. Not rubbing at eye. right flank pain -worse with sneezing (often). long time. Always tired - not sleeping Nose constantly runny. previous allergy testing neg. Able to runs without SOB. Social History Description Last Updated Smoking status : Never smoker 11/03/2019 Last Documented On 0 7:20PM ; [facility] Procedures and Surgical History Includes: Procedures from this encounter Procedures Code Diagnosis Performing Provider Service L ocation Service Date diet low salt, low cholesterol Last Documented On 0 7:14PM ; [facility] continue current medication Last Documented On 0 7:14PM ; [facility] education and instructions - - given websites to look up information. [email or web address]. [email or web address] Last Documented On 0 7:14PM ; [facility] plan of care reviewed and agreed to Last Documented On 0 7:14PM ; [facility] review of medications documented 1160F Last Documented On 0 11:55AM ; [facility] Discussed Exercise daily exercise for 30 -60 min Last Documented On 0 7:14PM ; [facility] Clinical summary provided to patient Last Documented On 0 7:14PM ; [facility] Surgical History Last Updated Surgical / procedural history cardiac ab lation 201210/19/2016 Last Documented On 0 11:55AM ; [facility] Medical History Includes: Medical History addressed during this encounter Description Last Updated Denies a fear of falling. 07/20/2019 Last Documented On 0 11:55AM ; [facility] Has had no fall in the last 12 months. 1 09/19/2018 Last Documented On 0 11:55AM ; [facility] Surgeries cardiac ablation a nd cholecystectomy. ~Illnesses history of age. Fibrillation treated by ablation 12/15/2018 Last Documented On 0 11:55AM ; [facility] No reported medical history or no signif icant history 10/19/2016 Last Documented On 0 11:55AM ; [facility] Family History Includes: Family History addressed [...] Time Diagnosis PROBLEM VISIT REZA SWAN MD [facility]- 0 11:21AM 12:26PM Insurance Includes: Active Insurance Policies Plan Name Member ID Group # Subscriber Relationship Effect raul [facility] [id number] Pablito FULLER Self Clinical Notes Includes: Clinical Notes from this encounter No Clinical Notes Recorded
--- OUTSIDE RECORDS SUMMARY | 2024-10-25 15:17 | XMS_ITS | Clinical Summary ---
Author Organization [facility] Address [address] [place] [address] Phone Care Team Providers Care Manager Pricing Name Role Phone REZA SWAN M.D. Primary Care Provider [phone] REZA SWAN MD Unavailable [phone] Reason for Visit and Chief Complaint [Patient Encounter] Problems Includes: Problems addressed during this encounter and other active Problems Current Visit Onset Date Resolved Date Provider Conditio n Status Unspecified atrial fibrillation 06/08/2019 REZA SWAN MD Active Last Documented On 9 2:24PM ; [facility] Past Visits Onset Date Resolved Date Provider Condition Status Right lower quadrant abdominal swelling, mass and lump 12/15/2018 REZA SWAN MD Active Last Documented On 9 3:00PM ; [facility] Other fatigue 12/15/2018 REZA SWAN MD A ctive Last Documented On 9 3:00PM ; [facility] Encntr for general adult med ical exam w/o abnormal findings 12/15/2018 REZA SWAN MD Active Last Documented On 9 3:00PM ; [facility] Encounter for screening for malignant neoplasm of colon 12/15/2018 REZA SWAN MD Active Last Documented On 9 7:30PM ; [facility] Encounter for screening for malignant neoplasm of prostate 12/15/2018 REZA SWAN MD Active Last Documented On 9 3:00PM ; [facility] Functional diarrhea 10/19/2016 REZA Lott MD Active Last Documented On 7 5:17PM ; [facility] Plan of Treatment Referrals To Diagnosis Hvac Estimator [facility] - [address] [place] [address] - Unspecified atrial fibrillation Note: Dr Kee diez has Prime - needs renewal of referral for a-fib to electrophysiology, office visit. Gabriela [phone]. fax# [phone] sent by industrial arts teacher. Last Documented On 0 10:19AM ; [facility] Assessments Includes: Assessments from this encounter No [...] 0 12:32PM By REZA SWAN MD ; [facility] EQ One Daily Mens 50+ Oral Tablet 07/20/2019 Provide r: Diagnosis: Last Documented On 9 1:22PM By ELVA HERNANDEZ ; [facility] Ocuvite-Lutein Oral Capsule 10/13/2016 Provider: Diagnosis: Last Documented On 10/13/2016 2:34PM By LEANDRO HERNANDEZ ; [facility] Medications Administered Includes: Administered Medications from this encounter No Administered Medications Recorded Results Includes: Results discussed during this encounter No Results Recorded For Specified Dates History of Present Illness Includes: History of Present Illness from this encounter No History of Present Illness Recorded Social History No Social History Recorded - Smoking Status Unknown Medical History Includes: Medical History addressed during this encounter No Medical History Recorded Family History Includes: Family History addressed during this encounter No Family History Recorded Review of Systems Includes: Review of Systems from this encounter No Review of Systems Recorded Mental Status Includes: Mental Status from this encounter No Mental Status Recorded Functional Status Includes: Functional Status from this encounter No Functional Status Recorded Physical Exam Includes: Physical Exam from this encounter No Physical Exam Recorded Allergies Includes: Active Allergies No Known Allergies Encounters Encounter Provider Location Date Check-In Time Check-Out Time Diagnosis [Patient Encounter] REZA SWAN MD 9 2:15PM 11:59PM Insurance Includes: Active Insurance Policies Plan Name Member ID Group # Subscriber Relationship Effect raul [facility] [id number] E MIRTHA FULLER Self Clinical Notes Includes: Clinical Notes from this encounter No Clinical Notes Recorded
--- OUTSIDE RECORDS SUMMARY | 2024-10-25 15:17 | XMS_ITS ---
Author Organization [facility] Address [address] [place] [address] Phone Care Team Providers Care Paramedical Aide Name Role Phone REZA SWAN M.D. Primary Care Provider [phone] BENY BOWMAN, REZA Lott Unavailable [phone] Problems Includes: Active, inactive, and resolved Problems All Visits Onset Date Resolved Date Provider Condition S tatus Unspecified atrial fibrillation 06/08/2019 REZA SWAN MD Active Last Documented On 9 2:24PM ; [facility] Right lower quadrant abdomin al swelling, mass and lump 12/15/2018 REZA SWAN MD Active Last Documented On 9 3:00PM ; [facility] Other fatigue 12/15/2018 REZA SWAN MD A ctive Last Documented On 9 3:00PM ; [facility] Encntr for general adult med ical exam w/o abnormal findings 12/15/2018 REZA SWAN MD Active Last Documented On 9 3:00PM ; [facility] Encounter for screening for malignant neoplasm of colon 12/15/2018 REZA SWAN MD Active Last Documented On 9 7:30PM ; [facility] Encounter for screening for malignant neoplasm of prostate 12/15/2018 REZA SWAN MD Active Last Documented On 9 3:00PM ; [facility] Functional diarrhea 10/19/2016 REZA Lott MD Active Last Documented On 7 5:17PM ; [facility] Plan of Treatment Findings Encounter Date Ordered follow-up visit 3 month PROBLEM VISIT wi priyank REZA SWAN MD 11/03/2019 Last Documented On 0 7:20PM ; [facility] Ordered return to the clinic if condition worsens or new symptoms arise PROBLEM VISIT with REZA SWAN MD 11/03/2019 Last Documented On 0 7:20PM ; [facility] PLAN [Use for s.o.a.p. note free text] PROBLEM VISIT with REZA SWAN MD 11/03/2019 Last Documented On 0 7:20PM ; [facility] Ordered follow-up visit 3 months PROBLEM VISIT w christina REZA SWAN MD 07/20/2019 Last Documented On 9 12:25PM ; [facility] Ordered return to the clinic if condition worsens or new symptoms arise PROBLEM VISIT with REZA SWAN MD 07/20/2019 Last Documented On 9 12:25PM ; [facility] PLAN [Use for s.o.a.p. note free text] PROBLEM VISIT with REZA SWAN MD 07/20/2019 Last Documented On 9 12:25PM ; [facility] Ordered follow-up visit CHECK UP with REZA MILLER MD 12/15/2018 Last Documented On 9 7:31PM ; [facility] Ordered return to the clinic if condition worsens or new symptoms arise CHECK UP with REZA SWAN MD 12/15/2018 Last Documented On 9 7:31PM ; [facility] PLAN [Use for s.o.a.p. note free text] CHECK UP with REZA SWAN MD 12/15/2018 Last Documented On 9 7:31PM ; [facility] Ordered follow-up visit 1 month NEW [place] ENT VISIT with REZA SWAN MD 10/13/2016 Last Documented On 7 5:20PM ; [facility] Ordered return to the clinic if condition worsens or new symptoms arise NEW PATIENT VISIT with REZA SWAN MD 10/13/2016 Last Documented On 7 5:20PM ; [facility] PLAN [Use for s.o.a.p. note free text] NEW PATIENT VISIT with REZA SWAN MD 10/13/2016 Last Documented On 7 5:20PM ; [facility] Referrals To Diagnosis Key Holder [facility]IENTS HOME - [address] [place] [address] Functional diarrhea Last Documented On 8 5:44PM ; [facility] Abap Developer HOMA TAYLOR Unspeci fied atrial fibrillation Note: Patient would like to see Dr. Jonathan Gaston at [facility] #[phone] Last Documented On 8 8:43AM ; [facility] Key Holder REZA Go[facility] for screening for malignant neoplasm of colon Note: in [facility] for screening.[facility] Last Documented On 0 2:45PM ; [facility] Abap Developer [facility] [address] [place] [address] - Unspecified atrial fibrillation Note: Dr Kee Bear. Grecia atient has Prime - needs renewal of referral for a-fib to electrophysiology, office visit. Gabriela [phone]. fax# [phone] sent by metalworker. Last Documented On 0 10:19AM ; [facility] Assessments Includes: Assessments for all patient encounters Findings Encounter Date Atrial fibrillation PROBLEM VISIT with HOMA TAYLOR 02/26/2018 Last Documented On 8 3:56PM ; [facility] Medical Equipment - Implanted Devices Includes: Current and historical Devices No Medical Equipment Recorded Medications Includes: Current and historical Medications Current Medications (continue as prescribed) Gabapentin 300 MG Oral Capsule 11/03/2019 Provider: REZA SWAN MD Diagnosis: Low back pain One tablet at bed time Last Documented On 0 12:32PM By REZA SWAN MD ; [facility] EQ One Daily Mens 50+ Oral Tablet 07/20/2019 Provide r: Diagnosis: Last Documented On 9 1:22PM By ELVA HERNANDEZ ; [facility] Ocuvite-Lutein Oral Capsule 10/13/2016 Provider: Diagnosis: Last Documented On 10/13/2016 2:34PM By LEANDRO HERNANDEZ ; [facility] Past Medications on file Aspir-81 Oral Tablet Delayed Release 10/13/2016 - 10/09 Provider: Diagnosis: Last Documented On 0 11:55AM By LEANDRO HERNANDEZ ; [facility] Medications Administered Includes: Administered Medications in patient's chart No Administered Medications Recorded Results Includes: Results from 10/25/2023 through 10/25/2024 No Results Recorded For Specified Dates History of Present Illness History of Present Illness not supported for this document type No History of Present Illness Recorded Social History Description Last Updated Smoking status : Never smoker 11/03/2019 Last Documented On 0 7:20PM ; [facility] Social history: Tobacco: Non e. Alcohol: 4 beers per week. Drugs: None. Exercise: Daily some with running. 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 07/20/2019 Last Documented On 9 12:25PM ; [facility] Has had no fall in the last 12 months. 1 09/19/2018 Last Documented On 9 12:25PM ; [facility] Surgeries cardiac ablation a nd cholecystectomy. ~Illnesses history of age. Fibrillation treated by ablation 12/15/2018 Last Documented On 9 7:31PM ; [facility] No reported medical history or no signif icant history 10/19/2016 Last Documented On 7 5:20PM ; [facility] Family History Includes: Family History in patient's chart Description Last Updated Family history: Mother from rectal cancer at age 82. Father's history unknown. 4 brothers with diabetes or overweight. 2 children that are healthy 12/15/2018 Last Documented On 9 7:31PM ; [facility] Fraternal history of cancer myeloma 10/08 Last Documented On 7 5:20PM ; [facility] Maternal history of cancer colon 017 Last Documented On 7 5:20PM ; [facility] Review of Systems Review of Systems not supported for this document type No Review of Systems Recorded Mental Status No Mental Status Recorded Functional Status No Functional Status Recorded Physical Exam Physical Exam not supported for this document type No Physical Exam Recorded Allergies Includes: Active, inactive, and resolved Allergies No Known Allergies Insurance Includes: Active Insurance Policies Plan Name Member ID Group # Subscriber Relationship Effect raul Dates - [facility] [id number] Pablito FULLER Self Clinical Notes Includes: Signed Clinical Notes starting from 09/26/2022 No Clinical Notes Recorded
--- OUTSIDE RECORDS SUMMARY | 2024-10-25 15:17 | XMS_ITS ---
Care Plan - [facility] Created on: October 25, 2024 Pablito FULLER MIRTHA : 1955 Sex: Male Author Organization [facility] Address [address] [place] [address] Phone Care Team Providers Care Director Financial Planning Name Role Phone REZA SWAN M.D. Primary Care Provider [phone] REZA SWAN MD Unavailable [phone]
== END 2024-10-25 15:13 | disposition home or self-care (01) ==
PROVIDERS: PCP Family Medicine; Visit Provider Family Medicine
DX: M17.12 Unilateral primary osteoarthritis, left knee (principal)
CPT/HCPCS: 73564

== ENCOUNTER 2025-01-03 08:30 | Outpatient (CLI) | payer MEDICARE, OTHER, SELFPAY ==
--- OUTSIDE RECORDS SUMMARY | 2025-01-03 08:50 | XMS_ITS | Clinical Summary ---
Author Organization [facility] Address [address] [place] [address] Care Team Providers Care Document Imaging Manager Name Role Phone Unavailable Primary Care Provider Unavailabl e Source Comments [facility],non-owned Affiliates and Associated Physician Practices is amultiple site organization consisting of ambulatory clinics and hospital sitesin [place], [place], [place] and [place]. This disclosure is being madepursuant to the Care Everywhere program and may not contain all information available regarding this patient. 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
--- OUTSIDE RECORDS SUMMARY | 2025-01-03 08:50 | XMS_ITS ---
Care Plan - [facility] Created on: January 03, 2025 Pablito FULLER MIRTHA : 1955 Sex: Male Author Organization [facility] Address [address] [place] [address] Phone Care Team Providers Care Bag Turner Name Role Phone REZA SWAN M.D. Primary Care Provider [phone] REZA SWAN MD Unavailable [phone]
--- OUTSIDE RECORDS SUMMARY | 2025-01-03 08:50 | XMS_ITS | Clinical Summary ---
Author Organization [facility] Address [address] [place] [address] Phone Care Team Providers Care Peer Counselor Name Role Phone REZA SWAN M.D. Primary Care Provider [phone] REZA SWAN MD Unavailable [phone] Reason for Visit and Chief Complaint The [...] Active Last Documented On 9 2:24PM ; [facility] Right lower quadrant abdomin al swelling, mass and lump 12/15/2018 REZA SWAN MD Active Last Documented On 9 3:00PM ; [facility] Other fatigue 12/15/2018 REZA SWAN MD A ctive Last Documented On 9 3:00PM ; [facility] Encntr for general adult med ical exam w/o abnormal findings 12/15/2018 REZA SWAN MD Active Last Documented On 9 3:00PM ; [facility] Encounter for screening for malignant neoplasm of colon 12/15/2018 REZA SWAN MD Active Last Documented On 9 7:30PM ; [facility] Encounter for screening for malignant neoplasm of prostate 12/15/2018 REZA SWAN MD Active Last Documented On 9 3:00PM ; [facility] Functional diarrhea 10/19/2016 REZA Lott MD Active Last Documented On 7 5:17PM ; [facility] Plan of Treatment - Return to the clinic if condition worsens or new symptoms arise - Last Documented On 08/06/2019 12:25PM ; [facility] - Follow-up visit 3 months - Last Documented On 08/06/2019 12:25PM ; [facility] PLAN [Use for s.o.a.p. note free text]. - Last Documented On 08/06/2019 12:25PM ; [facility] Declines pain meds. - Last Documented On 08/06/2019 12:25PM ; [facility] Assessments Includes: Assessments from this encounter [...] 0 12:32PM By REZA SWAN MD ; [facility] EQ One Daily Mens 50+ Oral Tablet 07/20/2019 Provide r: Diagnosis: Last Documented On 9 1:22PM By ELVA HERNANDEZ ; [facility] Ocuvite-Lutein Oral Capsule 10/13/2016 Provider: Diagnosis: Last Documented On 10/13/2016 2:34PM By LEANDRO HERNANDEZ ; [facility] Medications Administered Includes: Administered Medications from this encounter No Administered Medications Recorded Vital Signs Includes: Vital Signs from this encounter Vital Name 07/20/2019 01:17P Blood Pressure Sitting (mmHg) 142/86 Pulse Rate-Sitting (bpm) 53 Height (in) 70 Weight (lb) 197 Body Mass Index (kg/m2) 28.3 Body Surface Area (m2) 2.1 Oxygen Saturation (%) 98 Last Documented: On 07/20/2019 1:21PM ; [facility] Results Includes: Results discussed during this [...] numbness, tingling, weakness. Patient previously saw a raw shellfish preparer for the constipation and recommended medications only. No colonoscopy recently. Status post cholecystectomy. Social History Description Last Updated Smoking status : Never smoker 11/03/2019 Last Documented On 9 1:17PM ; [facility] Social history: Tobacco: Non e. Alcohol: 4 beers per week. Drugs: None. Exercise: Daily some with running. 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 ; [facility] Work history 10/19/2016 Last Documented On 9 1:17PM ; [facility] Procedures and Surgical History Includes: Procedures from this encounter Procedures Code Diagnosis Performing Provider Service L ocation Service Date continue current medication Last Documented On 9 12:23PM ; [facility] plan of care reviewed and agreed to Last Documented On 9 12:23PM ; [facility] Clinical summary provided to patient Last Documented On 9 12:23PM ; [facility] Medical History Includes: Medical History addressed during this encounter Description Last Updated Denies a fear of falling. 07/20/2019 Last Documented On 9 12:25PM ; [facility] Has had no fall in the last 12 months. 1 09/19/2018 Last Documented On 9 12:25PM ; [facility] Family History Includes: Family History addressed during this encounter Description Last Updated Family history: Mother from rectal cancer at age 82. Father's history unknown. 4 brothers with diabetes or overweight. 2 children that are healthy 12/15/2018 Last Documented On 9 1:17PM ; [facility] Fraternal history of cancer myeloma 10/08 Last Documented On 9 1:17PM ; [facility] Maternal history of cancer colon 017 Last Documented On 9 1:17PM ; [facility] Review of Systems Includes: Review of [...] Time Diagnosis PROBLEM VISIT REZA SWAN MD [facility]- 9 1:15PM 1:45PM Insurance Includes: Active Insurance Policies Plan Name Member ID Group # Subscriber Relationship Effect raul Dates - [facility] [id number] Pablito FULLER Self Clinical Notes Includes: Clinical Notes from this encounter No Clinical Notes Recorded
--- OUTSIDE RECORDS SUMMARY | 2025-01-03 08:50 | XMS_ITS | Clinical Summary ---
Author Organization [facility] Address [address] [place] [address] Phone Care Team Providers Care Lead Front End Developer Name Role Phone REZA SWAN M.D. Primary Care Provider [phone] REZA SWAN MD Unavailable [phone] Reason for Visit and Chief Complaint The Chief Complaint is: PT STATES HE HAS NOT SEEN A TIPPLE REPAIRER SINCE HE HAD AN ABLATION DONE FOR AFIB AT WITH A DR. CHANELL GODINEZ Problems Includes: Problems addressed during this encounter and other active Problems All Visits Onset Date Resolved Date Provider Condition S tatus Unspecified atrial fibrillation 06/08/2019 REZA SWAN MD Active Last Documented On 9 2:24PM ; [facility] Right lower quadrant abdomin al swelling, mass and lump 12/15/2018 REZA SWAN MD Active Last Documented On 9 3:00PM ; [facility] Other fatigue 12/15/2018 REZA SWAN MD A ctive Last Documented On 9 3:00PM ; [facility] Encntr for general adult med ical exam w/o abnormal findings 12/15/2018 REZA SWAN MD Active Last Documented On 9 3:00PM ; [facility] Encounter for screening for malignant neoplasm of colon 12/15/2018 REZA SWAN MD Active Last Documented On 9 7:30PM ; [facility] Encounter for screening for malignant neoplasm of prostate 12/15/2018 REZA SWAN MD Active Last Documented On 9 3:00PM ; [facility] Functional diarrhea 10/19/2016 REZA Lott MD Active Last Documented On 7 5:17PM ; [facility] Plan of Treatment Will obtain EKG. Referral to cardiology. Follow up in 1 week. If symptoms worsen or episodes become prolonged go to ER. - Last Documented On 02/26/2018 3:56PM ; [facility] Referrals To Diagnosis Hall Clerk HOMA PULIDOP-C Unspeci fied atrial fibrillation Note: Patient would like to see Dr. Jonathan Gaston at [facility] #[phone] Last Documented On 8 8:43AM ; [facility] Assessments Includes: Assessments from this encounter Findings - Atrial fibrillation [I48.91 - Unspecified atrial fibrillation] - Last Documented On 02/26/2018 3:56PM ; [facility] Medical Equipment - Implanted Devices Includes: Current Devices No Medical Equipment Recorded Medications Includes: Medications discussed during this encounter and other current Medications Current Medications (continue as prescribed) Gabapentin 300 MG Oral Capsule 11/03/2019 Provider: REZA SWAN MD Diagnosis: Low back pain One tablet at bed time Last Documented On 0 12:32PM By REZA SWAN MD ; [facility] EQ One Daily Mens 50+ Oral Tablet 07/20/2019 Provide r: Diagnosis: Last Documented On 9 1:22PM By ELVA HERNANDEZ ; [facility] Ocuvite-Lutein Oral Capsule 10/13/2016 Provider: Diagnosis: Last Documented On 10/13/2016 2:34PM By LEANDRO HERNANDEZ ; [facility] Medications Administered Includes: Administered Medications from [...] 98 Last Documented: On 02/26/2018 3:45PM ; [facility] Results Includes: Results discussed during [...] used to see Dr. Gaston at [facility] in [place], [place] and had an ablation done with Dr. Godinez at [facility] in 2014 and his symptoms resolved. He denies any other symptoms, no chest pain, no shortness of breath. Social History Description Last Updated Smoking status : Never smoker 02/26/2018 Last Documented On 8 3:56PM ; [facility] Procedures and Surgical History Includes: Procedures from this encounter Procedures Code Diagnosis Performing Provider Service L ocation Service Date Clinical summary provided to patient Last Documented On 8 3:46PM ; [facility] Medical History Includes: Medical History [...] Check-Out Time Diagnosis PROBLEM VISIT HOMA TAYLOR [facility]- 02/27/20 18 4:00PM 3:43PM Atrial Fibrillation Insurance Includes: Active Insurance Policies Plan Name Member ID Group # Subscriber Relationship Effect raul Dates - [facility] [id number] Pablito FULLER Self Clinical Notes Includes: Clinical Notes from this encounter No Clinical Notes Recorded
--- OUTSIDE RECORDS SUMMARY | 2025-01-03 08:50 | XMS_ITS | Clinical Summary ---
Author Organization [facility] Address [address] [place] [address] Phone Care Team Providers Care Regulatory Associate Name Role Phone REZA SWAN M.D. Primary Care Provider [phone] REZA SWAN MD Unavailable [phone] Reason for Visit and Chief Complaint The [...] Active Last Documented On 9 2:24PM ; [facility] Right lower quadrant abdomin al swelling, mass and lump 12/15/2018 REZA SWAN MD Active Last Documented On 9 3:00PM ; [facility] Other fatigue 12/15/2018 REZA SWAN MD A ctive Last Documented On 9 3:00PM ; [facility] Encntr for general adult med ical exam w/o abnormal findings 12/15/2018 REZA SWAN MD Active Last Documented On 9 3:00PM ; [facility] Encounter for screening for malignant neoplasm of colon 12/15/2018 REZA SWAN MD Active Last Documented On 9 7:30PM ; [facility] Encounter for screening for malignant neoplasm of prostate 12/15/2018 REZA SWAN MD Active Last Documented On 9 3:00PM ; [facility] Functional diarrhea 10/19/2016 REZA Lott MD Active Last Documented On 7 5:17PM ; [facility] Plan of Treatment - Return to the clinic if condition worsens or new symptoms arise - Last Documented On 11/26/2019 7:20PM ; [facility] - Follow-up visit 3 month - Last Documented On 11/26/2019 7:20PM ; [facility] [Use for s.o.a.p. note free text]. - Last Documented On 11/26/2019 7:20PM ; [facility] Assessments Includes: Assessments from this encounter No Assessments Recorded Medical Equipment - Implanted Devices Includes: Current Devices No Medical Equipment Recorded Medications Includes: Medications discussed during this encounter and other current Medications Discontinued / Stopped on this date on 10/13/2016 Aspir-81 Oral Tablet Delayed Release Prov ider: Diagnosis: Last Documented On 0 11:55AM By LEANDRO HERNANDEZ ; [facility] New / Renewed during this visit REZA SWAN MD on 11/03/2019 Gabapentin 300 MG Oral Capsule Provider: REZA SWAN MD 30 day supply: 30 capsule, 1 refills Diagnosis: Low back pain One tablet at bed time Pharmacy: [facility] [address], [phone] - Last Documented On 0 12:32PM By REZA SWAN MD ; [facility] Current Medications (continue as prescribed) EQ One Daily Mens 50+ Oral Tablet 07/20/2019 Provide r: Diagnosis: Last Documented On 9 1:22PM By ELVA HERNANDEZ ; [facility] Ocuvite-Lutein Oral Capsule 10/13/2016 Provider: Diagnosis: Last Documented On 10/13/2016 2:34PM By LEANDRO HERNANDEZ ; [facility] Medications Administered Includes: Administered Medications from this [...] Last Documented: On 11/03/2019 11:57A M ; [facility] On 11/03/2019 11:56AM ; [facility] Results Includes: Results discussed during [...] 11/03/2019 Last Documented On 0 7:20PM ; [facility] Procedures and Surgical History Includes: Procedures from this encounter Procedures Code Diagnosis Performing Provider Service L ocation Service Date diet low salt, low cholesterol Last Documented On 0 7:14PM ; [facility] continue current medication Last Documented On 0 7:14PM ; [facility] education and instructions - - given websites to look up information. [email or web address] Last Documented On 0 7:14PM ; [facility] plan of care reviewed and agreed to Last Documented On 0 7:14PM ; [facility] review of medications documented 1160F Last Documented On 0 11:55AM ; [facility] Discussed Exercise daily exercise for 30 -60 min Last Documented On 0 7:14PM ; [facility] Clinical summary provided to patient Last Documented On 0 7:14PM ; [facility] Surgical History Last Updated Surgical / procedural history cardiac ab lation 201210/19/2016 Last Documented On 0 11:55AM ; [facility] Medical History Includes: Medical History addressed during this encounter Description Last Updated Denies a fear of falling. 07/20/2019 Last Documented On 0 11:55AM ; [facility] Has had no fall in the last 12 months. 1 09/19/2018 Last Documented On 0 11:55AM ; [facility] Surgeries cardiac ablation a nd cholecystectomy. ~Illnesses history of age. Fibrillation treated by ablation 12/15/2018 Last Documented On 0 11:55AM ; [facility] No reported medical history or no signif icant history 10/19/2016 Last Documented On 0 11:55AM ; [facility] Family History Includes: Family History addressed during [...] Time Diagnosis PROBLEM VISIT REZA SWAN MD [facility]- 0 11:21AM 12:26PM Insurance Includes: Active Insurance Policies Plan Name Member ID Group # Subscriber Relationship Effect raul [facility] [id number] Pablito FULLER Self Clinical Notes Includes: Clinical Notes from this encounter No Clinical Notes Recorded
--- OUTSIDE RECORDS SUMMARY | 2025-01-03 08:50 | XMS_ITS | Continuity of Care Document ---
Author Name [facility] Organization [facility] Care Team Providers Care Accounting Lecturer Name Role Phone [facility] Unavailable Unavailable Medications Combined list of outpatient [...] ORAL, ADVAGEN PHARMA, 500 ea. BOTTLE Active [id number] 2023 30 Pharmac y Data Transac tion Service Facilit y DILTIAZEM 24HR ER (CD) (diltiazem HCl), 120 MG, CAP ER 24H, ORAL, [employer] 90 ea. BOTTLE Cancele d [id number] : 2023 0 Pharmac y Data Transac tion Service Facilit y DILTIAZEM 24HR ER (CD) (diltiazem HCl), 120 MG, CAP ER 24H, ORAL, [employer]US [employer]ARMAC, 90 ea. BOTTLE Cancele d [id number] : 2023 0 Pharmac y Data Transac tion Service Facilit y MULTAQ (DRONEDARON E HYDROCHLORI DE), 400 MG, TABLET, ORAL, SANOFI-AVEN TIS, 60 ea. BOTTLE Active [id number] 4 2023 90 Pharmac y Data Transac tion Service Facilit y TAMSULOSIN HCL (TAMSULOSIN HCL), 0.4 MG, CAP.SR 24H, ORAL, ZYDUS PHARMACEU, 1000 ea. BOTTLE Active [id number] 4 2023 90 Pharmac y Data Transac tion Service Facilit y TESTOSTERON E CYPIONATE (testostero ne cypionate), 200 MG/ML, VIAL, INTRAMUSC, [facility] [employer] 1 ml VIAL Cancele d [id number] : 2023 0 Pharmac y Data Transac tion Service Facilit y VITAMIN D2 (ergocalcif ariadne (vitamin D2)), 1250 MCG, CAPSULE, ORAL, [employer], 100 ea. BOTTLE Active [id number] 4 2023 12 Pharmac y Data Transac tion Service Facilit y ZOLPIDEM TARTRATE (zolpidem tartrate), 5 MG, TABLET, ORAL, [employer], 1000 ea. BOTTLE Active [id number] 4 2023 30 Pharmac y Data Transac tion Service Facilit y Immunizations Combined list of available immunizations from the Department of Defense and Veterans Affairs facilities. Immunization Series Date Given Administered By Site Reaction Lot Number CVX Code Drug Supervisor Malted Milk Status Comments Source Influenza, injectable, MDCK, preservative free, quadrivalent 2019 TORRES, () Not Given Influenza , injectabl e, MDCK, preservat arul free, quadrival ent [facility] hepatitis A vaccine, adult dosage 2 1995 Unknown, Provider 52 () complet hepatitis A vaccine, adult dosage DoD hepatitis B vaccine, adult dosage 2 1995 Unknown, Provider 43 () complet hepatitis B vaccine, adult dosage [facility] typhoid vaccine, parenteral, acetone-kille d, dried ([place]. ) 2 1995 Unknown, Provider 53 () complet typhoid vaccine, parentera l, acetone-k illed, dried ([place] ) [facility] tuberculin skin test; purified protein derivative solution, intradermal 1 1995 Unknown, Provider 96 () complet tuberculi n skin test; purified protein derivativ e solution, intraderm al [facility] tetanus and diphtheria toxoids, adsorbed, preservative free, for adult use (2 Lf of tetanus toxoid and 2 Lf of diphtheria toxoid) 1995 Unknown, Provider 09 () complet tetanus and diphtheri a toxoids, adsorbed, preservat raul free, for adult use (2 Lf of tetanus toxoid and 2 Lf of diphtheri a toxoid) [facility] hepatitis B vaccine, adult dosage 1 1995 [...] facilities. Social History Type Response Date Comment [facility] e This section is an empty social history section. DoD
--- OUTSIDE RECORDS SUMMARY | 2025-01-03 08:50 | XMS_ITS | Clinical Summary ---
Author Organization [employer] [id number] [facility] Address [address] [place] [address] Care Team Providers Care Field Agronomist Name Role Phone Fermin Hendrickson MD Primary Care Provider Allergies No known active allergies Medications tamsulosin (FLOMAX) 0.4 mg capsule Take 0.4 mg by mouth daily. Active vit A,C and B-hgamcd-emtoml ls (OCUVITE) 300 mcg-200 mg-27 mg-2 mg [...] Problem Noted Date Diagnosed Date Palpitations 06/10/2018 Social History Tobacco Use Types Packs/Day Years Used Date Smoking Tobacco: Never Tobacco Cessation:Counseling Given: Not Answered Sex and Gender Information Value Date Recorded Sex Assigned at Not on file Legal Sex Male 11:57 PM CDT Gender Identity Not on file Sexual Orientation Not on file Last Filed Vital Signs Vital Sign Reading Time Taken Comments Blood Pressure 130/80 08/01/2024 2:00 PM NEWS ASSIGNMENT EDITOR Pulse 49 08/01/2024 2:00 PM NEWS ASSIGNMENT EDITOR Temperature - - Respiratory Rate - - Oxygen Saturation - - Inhaled Oxygen Concentration - - Weight 87.1 kg (192 lb) 08/01/2024 2:00 PM NEWS ASSIGNMENT EDITOR Height 180.3 cm (5' 11 ) 08/01/2024 2:00 PM NEWS ASSIGNMENT EDITOR Body Mass Index 26.78 08/01/2024 2:00 PM NEWS ASSIGNMENT EDITOR Plan of Treatment Upcoming Encounters Date Type Department Care Team (Late st Contact Info) Description 02/07/2025 11:30 AM CDT Office Visit [facility] - [address] [facility] [phone] [facility] [address] [place] [address] [place] [address] [address] [facility] [address] [place] [address] Health Maintenance Due Date Last Done Comments Pre-Diabetes and Diabetes Screening 1955 DTAP/TDAP/TD VACCINES (1 - Tdap) 1976 FIT-DNA Q 3 years 2002 FIT/FOBT Q 1 year 2002 Flex Sig/CT Colonography Q 5 years 2002 PNEUMOCOCCAL VACCINE 50+ YEA RS (1 of 1 - PCV) 2007 INFLUENZA VACCINE (#1) 2024 08/18/2022 COLORECTAL SCREENING 12/14/2031 12/13/2021 Colorectal Cancer Screening 12/14/2031 RSV VACCINE (60+ or ) (1 - 1-dose 75+ series) 2032 ZOSTER VACCINE Completed 01/15/2022, 11/07/2021 Insurance [employer] CHOICE PPO MCR [employer] GOLD PLUS O MCR Care Teams Field Agronomist Relationship Specialty Start Date End Date Fermin Hendrickson MD [facility] [place] [address] PCP - General Family Practice 01/14/24
--- OUTSIDE RECORDS SUMMARY | 2025-01-03 08:50 | XMS_ITS ---
Author Organization [facility] Address [address] [place] [address] Phone Care Team Providers Care Body Shop Supervisor Name Role Phone REZA SWAN M.D. Primary Care Provider [phone] BENY BOWMAN, REZA Lott Unavailable [phone] Problems Includes: Active, inactive, and resolved Problems All Visits Onset Date Resolved Date Provider Condition S tatus Unspecified atrial fibrillation 06/08/2019 REZA SWAN MD Active Last Documented On 9 2:24PM ; [facility] Right lower quadrant abdomin al swelling, mass and lump 12/15/2018 REZA SWAN MD Active Last Documented On 9 3:00PM ; [facility] Other fatigue 12/15/2018 REZA SWAN MD A ctive Last Documented On 9 3:00PM ; [facility] Encntr for general adult med ical exam w/o abnormal findings 12/15/2018 REZA SWAN MD Active Last Documented On 9 3:00PM ; [facility] Encounter for screening for malignant neoplasm of colon 12/15/2018 REZA SWAN MD Active Last Documented On 9 7:30PM ; [facility] Encounter for screening for malignant neoplasm of prostate 12/15/2018 REZA SWAN MD Active Last Documented On 9 3:00PM ; [facility] Functional diarrhea 10/19/2016 REZA Lott MD Active Last Documented On 7 5:17PM ; [facility] Plan of Treatment Findings Encounter Date Ordered follow-up visit 3 month PROBLEM VISIT wi priyank REZA SWAN MD 11/03/2019 Last Documented On 0 7:20PM ; [facility] Ordered return to the clinic if condition worsens or new symptoms arise PROBLEM VISIT with REZA SWAN MD 11/03/2019 Last Documented On 0 7:20PM ; [facility] PLAN [Use for s.o.a.p. note free text] PROBLEM VISIT with REZA SWAN MD 11/03/2019 Last Documented On 0 7:20PM ; [facility] Ordered follow-up visit 3 months PROBLEM VISIT w christina REZA SWAN MD 07/20/2019 Last Documented On 9 12:25PM ; [facility] Ordered return to the clinic if condition worsens or new symptoms arise PROBLEM VISIT with REZA SWAN MD 07/20/2019 Last Documented On 9 12:25PM ; [facility] PLAN [Use for s.o.a.p. note free text] PROBLEM VISIT with REZA SWAN MD 07/20/2019 Last Documented On 9 12:25PM ; [facility] Ordered follow-up visit CHECK UP with REZA MILLER MD 12/15/2018 Last Documented On 9 7:31PM ; [facility] Ordered return to the clinic if condition worsens or new symptoms arise CHECK UP with REZA SWAN MD 12/15/2018 Last Documented On 9 7:31PM ; [facility] PLAN [Use for s.o.a.p. note free text] CHECK UP with REZA SWAN MD 12/15/2018 Last Documented On 9 7:31PM ; [facility] Ordered follow-up visit 1 month NEW [facility] ENT VISIT with REZA SWAN MD 10/13/2016 Last Documented On 7 5:20PM ; [facility] Ordered return to the clinic if condition worsens or new symptoms arise NEW PATIENT VISIT with REZA SWAN MD 10/13/2016 Last Documented On 7 5:20PM ; [facility] [Use for s.o.a.p. note free text] NEW PATIENT VISIT with REZA SWAN MD 10/13/2016 Last Documented On 7 5:20PM ; [facility] Referrals To Diagnosis Hand Assembler For Puller Over PATIENTS HOME - [address] [place] [address] Functional diarrhea Last Documented On 8 5:44PM ; [facility] Grassland Conservationist HOMA TAYLOR Unspeci fied atrial fibrillation Note: Patient would like to see Dr. Jonathan Gaston at [facility] #[phone] Last Documented On 8 8:43AM ; [facility] Hand Assembler For Puller Over REZA Goetz [facility] for screening for malignant neoplasm of colon Note: in [facility] for screening[facility] Last Documented On 0 2:45PM ; [facility] Grassland Conservationist [facility] - [address] [place] [address] - Unspecified atrial fibrillation Note: Dr Kee Bear. Grecia atient has Prime - needs renewal of referral for a-fib to electrophysiology, office visit. Gabriela [phone]. fax# [phone] sent by bag end sewer. Last Documented On 0 10:19AM ; [facility] Assessments Includes: Assessments for all patient encounters Findings Encounter Date Atrial fibrillation PROBLEM VISIT with HOMA TAYLOR 02/26/2018 Last Documented On 8 3:56PM ; [facility] Medical Equipment - Implanted Devices Includes: Current and historical Devices No Medical Equipment Recorded Medications Includes: Current and historical Medications Current Medications (continue as prescribed) Gabapentin 300 MG Oral Capsule 11/03/2019 Provider: REZA SWAN MD Diagnosis: Low back pain One tablet at bed time Last Documented On 0 12:32PM By REZA SWAN MD ; [facility] EQ One Daily Mens 50+ Oral Tablet 07/20/2019 Provide r: Diagnosis: Last Documented On 9 1:22PM By ELVA HERNANDEZ ; [facility] Ocuvite-Lutein Oral Capsule 10/13/2016 Provider: Diagnosis: Last Documented On 10/13/2016 2:34PM By LEANDRO HERNANDEZ ; [facility] Past Medications on file Aspir-81 Oral Tablet Delayed Release 10/13/2016 - 10/09 Provider: Diagnosis: Last Documented On 0 11:55AM By LEANDRO HERNANDEZ ; [facility] Medications Administered Includes: Administered Medications in patient's chart No Administered Medications Recorded Results Includes: Results from 01/04/2024 through 01/03/2025 No Results Recorded For Specified Dates History of Present Illness History of Present Illness not supported for this document type No History of Present Illness Recorded Social History Description Last Updated Smoking status : Never smoker 11/03/2019 Last Documented On 0 7:20PM ; [facility] Social history: Tobacco: Non e. Alcohol: 4 beers per week. Drugs: None. Exercise: Daily some with running. 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 07/20/2019 Last Documented On 9 12:25PM ; [facility] Has had no fall in the last 12 months. 1 09/19/2018 Last Documented On 9 12:25PM ; [facility] Surgeries cardiac ablation a nd cholecystectomy. ~Illnesses history of age. Fibrillation treated by ablation 12/15/2018 Last Documented On 9 7:31PM ; [facility] No reported medical history or no signif icant history 10/19/2016 Last Documented On 7 5:20PM ; [facility] Family History Includes: Family History in patient's chart Description Last Updated Family history: Mother from rectal cancer at age 82. Father's history unknown. 4 brothers with diabetes or overweight. 2 children that are healthy 12/15/2018 Last Documented On 9 7:31PM ; [facility] Fraternal history of cancer myeloma 10/08 Last Documented On 7 5:20PM ; [facility] Maternal history of cancer colon 017 Last Documented On 7 5:20PM ; [facility] Review of Systems Review of Systems not [...] # Subscriber Relationship Effect raul Dates - [facility] [id number] Pablito FULLER Self Clinical Notes Includes: Signed Clinical Notes starting from 09/26/2022 No Clinical Notes Recorded
--- OUTSIDE RECORDS SUMMARY | 2025-01-03 08:50 | XMS_ITS | Clinical Summary ---
Author Organization [facility] Address [address] [place] [address] Phone Care Team Providers Care Spray Applicator Name Role Phone REZA SWAN M.D. Primary Care Provider [phone] REZA SWAN MD Unavailable [phone] Reason for Visit and Chief Complaint The Chief Complaint is: Pt is here for an annual check up Problems Includes: Problems addressed during this encounter and other active Problems Current Visit Onset Date Resolved Date Provider Conditio n Status Right lower quadrant abdominal swelling, mass and lump 12/15/2018 REZA SWAN MD Active Last Documented On 9 3:00PM ; [facility] Other fatigue 12/15/2018 REZA SWAN MD A ctive Last Documented On 9 3:00PM ; [facility] Encntr for general adult med ical exam w/o abnormal findings 12/15/2018 REZA SWAN MD Active Last Documented On 9 3:00PM ; [facility] Encounter for screening for malignant neoplasm of colon 12/15/2018 REZA SWAN MD Active Last Documented On 9 7:30PM ; [facility] Encounter for screening for malignant neoplasm of prostate 12/15/2018 REZA SWAN MD Active Last Documented On 9 3:00PM ; [facility] Past Visits Onset Date Resolved Date Provider Condition Status Unspecified atrial fibrillation 06/08/2019 REZA SWAN MD Active Last Documented On 9 2:24PM ; [facility] Functional diarrhea 10/19/2016 REZA Lott MD Active Last Documented On 7 5:17PM ; [facility] Plan of Treatment - Return to the clinic if condition worsens or new symptoms arise - Last Documented On 12/15/2018 7:31PM ; [facility] - Follow-up visit - Last Documented On 12/15/2018 7:31PM ; [facility] PLAN [Use for s.o.a.p. note free text]. - Last Documented On 12/15/2018 7:31PM ; [facility] Referrals To Diagnosis Architectural Engineer REZA michael for screening for malignant neoplasm of colon Note: in [facility] for screening.[facility] Last Documented On 0 2:45PM ; [facility] Assessments Includes: Assessments from this encounter No Assessments Recorded Medical Equipment - Implanted Devices Includes: Current Devices No Medical Equipment Recorded Medications Includes: Medications discussed during this encounter and other current Medications Current Medications (continue as prescribed) Gabapentin 300 MG Oral Capsule 11/03/2019 Provider: ERZA SWAN MD Diagnosis: Low back pain One tablet at bed time Last Documented On 0 12:32PM By REZA SWAN MD ; [facility] EQ One Daily Mens 50+ Oral Tablet 07/20/2019 Provide r: Diagnosis: Last Documented On 9 1:22PM By ELVA HERNANDEZ ; [facility] Ocuvite-Lutein Oral Capsule 10/13/2016 Provider: Diagnosis: Last Documented On 10/13/2016 2:34PM By LEANDRO HERNANDEZ ; [facility] Medications Administered Includes: Administered Medications [...] 96 Last Documented: On 12/15/2018 2:34PM ; [facility] Results Includes: Results discussed during [...] years ago and had followed up with audiology assistant and was told there was no problem. He's had seen a computer mechanic and his heart cleared. He requests blood work. Medications [id number] Ocuvite and aspirin. Allergies none. Surgeries cardiac [...] 12/15/2018 Last Documented On 9 7:31PM ; [facility] Smoking status : Never smoker 12/15/2018 Last Documented On 9 7:31PM ; [facility] Procedures and Surgical History Includes: Procedures from this encounter Procedures Code Diagnosis Performing Provider Service L ocation Service Date diet low salt, low cholesterol Last Documented On 9 7:07PM ; [facility] continue current medication Last Documented On 9 7:07PM ; [facility] plan of care reviewed and agreed to Last Documented On 9 7:07PM ; [facility] Discussed Exercise daily exercise for 30 -60 min Last Documented On 9 7:07PM ; [facility] Clinical summary provided to patient Last Documented On 9 7:07PM ; [facility] Medical History Includes: Medical History addressed during this encounter Description Last Updated Surgeries cardiac ablation a nd cholecystectomy. ~Illnesses history of age. Fibrillation treated by ablation 12/15/2018 Last Documented On 9 7:31PM ; [facility] Family History Includes: Family History addressed during this encounter Description Last Updated Family history: Mother from rectal cancer at age 82. Father's history unknown. 4 brothers with diabetes or overweight. 2 children that are healthy 12/15/2018 Last Documented On 9 7:31PM ; [facility] Review of Systems Includes: Review [...] Time Diagnosis CHECK UP REZA SWAN MD [facility]- 9 2:30PM 3:15PM Insurance Includes: Active Insurance Policies Plan Name Member ID Group # Subscriber Relationship Effect raul - [facility] [id number] E MIRTHA FULLER Self Clinical Notes Includes: Clinical Notes from this encounter No Clinical Notes Recorded
--- OUTSIDE RECORDS SUMMARY | 2025-01-03 08:50 | XMS_ITS | Clinical Summary ---
Author Organization [facility] Address [address] [place] [address] Phone Care Team Providers Care Mechanical Door Repairer Name Role Phone REZA SWAN M.D. Primary Care Provider [phone] REZA SWAN MD Unavailable [phone] Reason for Visit and Chief Complaint [Patient Encounter] Problems Includes: Problems addressed during this encounter and other active Problems Current Visit Onset Date Resolved Date Provider Conditio n Status Unspecified atrial fibrillation 06/08/2019 REZA SWAN MD Active Last Documented On 9 2:24PM ; [facility] Past Visits Onset Date Resolved Date Provider Condition Status Right lower quadrant abdominal swelling, mass and lump 12/15/2018 REZA SWAN MD Active Last Documented On 9 3:00PM ; [facility] Other fatigue 12/15/2018 REZA SWAN MD A ctive Last Documented On 9 3:00PM ; [facility] Encntr for general adult med ical exam w/o abnormal findings 12/15/2018 REZA SWAN MD Active Last Documented On 9 3:00PM ; [facility] Encounter for screening for malignant neoplasm of colon 12/15/2018 REZA SWAN MD Active Last Documented On 9 7:30PM ; [facility] Encounter for screening for malignant neoplasm of prostate 12/15/2018 REZA SWAN MD Active Last Documented On 9 3:00PM ; [facility] Functional diarrhea 10/19/2016 REZA Lott MD Active Last Documented On 7 5:17PM ; [facility] Plan of Treatment Referrals To Diagnosis Train Attendant [facility] - [address] [place] [address] - Unspecified atrial fibrillation Note: Dr Kee diez has Prime - needs renewal of referral for a-fib to electrophysiology, office visit. Gabriela [phone]. fax# [phone] sent by corn grinder. Last Documented On 0 10:19AM ; [facility] Assessments Includes: Assessments from this [...] 0 12:32PM By REZA SWAN MD ; [facility] EQ One Daily Mens 50+ Oral Tablet 07/20/2019 Provide r: Diagnosis: Last Documented On 9 1:22PM By ELVA HERNANDEZ ; [facility] Ocuvite-Lutein Oral Capsule 10/13/2016 Provider: Diagnosis: Last Documented On 10/13/2016 2:34PM By LEANDRO HERNANDEZ ; [facility] Medications Administered Includes: Administered Medications [...] Group # Subscriber Relationship Effect raul [facility] [id number] E MIRTHA FULLER Self Clinical Notes Includes: Clinical Notes from this encounter No Clinical Notes Recorded
[2025-01-03 13:50] LABS: Hemoglobin A1C 5.4 % (<5.7)
[2025-01-03 13:57] LABS: Basophils Percent Auto 0.6 % (0.2-1.2); Eosinophils Absolute Auto 0.2 K/mm3 (0-0.3); Eosinophils Percent Auto 3.5 % (0-4.4); Hematocrit 47.1 % (42.0-52.0); Hemoglobin 15.2 g/dL (14.0-18.0); Immature Granulocyte Absolute 0.02 K/mm3 (0.00-0.031); Immature Granulocyte Percent A 0.4 % (0-0.5); Lymphocytes Absolute Auto 1.82 K/mm3 (0.9-3.2); Lymphocytes Percent Auto 37.4 % (18.3-44.2); Mean Corpuscular HGB Conc 32.3 g/dl (32-36); Mean Corpuscular Hemoglobin 33.9 pg (26-34); Mean Corpuscular Volume 104.9 fl (80-100); Mean Platelet Volume 12.8 fl (7.4-10.4); Monocytes Absolute Auto 0.5 K/mm3 (0.1-0.6); Monocytes Percent Auto 10.5 % (2.6-8.5); Neutrophils Absolute Auto 2.3 K/mm3 (1.3-6.7); Neutrophils Percent Auto 47.6 % (45.5-73.1); Platelet Count Result 155 k/mm3 (150-375); Red Blood Count 4.49 M/mm3 (4.6-6.20); Red Cell Distribution Width 13.3 % (11.5-14.5); White Blood Count 4.9 K/mm3 (4.5-10.0)
[2025-01-03 14:27] LABS: Vitamin D 25 Hydroxy 50.8 ng/mL
[2025-01-03 14:59] LABS: Alanine Aminotransferase 22 U/L (6-50); Albumin Level 4.1 g/dL (3.5-5.1); Alkaline Phosphatase 63 U/L (38-126); Anion Gap 8 mmol/L (4-12); Aspartate Amino Transferase 36 U/L (17-59); Blood Urea Nitrogen 14 mg/dL (9-20); Calcium 9.3 mg/dL (8.4-10.2); Carbon Dioxide 29 mmol/L (22-30); Chloride 103 mmol/L (98-107); Cholesterol 182 mg/dL (0-200); Estimated Glomerular Filt Rate > 60; Glucose 88 mg/dL (65-110); HDL Direct 44 mg/dL; Potassium 3.8 mmol/L (3.4-5.0); Sodium 140 mmol/L (137-145); Triglycerides 43 mg/dL (<150)
[2025-01-03 15:10] LABS: LDL Cholesterol Direct 108 mg/dL
[2025-01-03 16:00] LABS: Vitamin B12 > 1000.0 pg/mL (239-931)
== END 2025-01-03 08:31 | disposition home or self-care (01) ==
LOC: ANHGOSHLAB 08:31
PROVIDERS: PCP Family Medicine; Visit Provider Family Medicine
DX: E53.8 Deficiency of other specified B group vitamins (principal); R73.9 Hyperglycemia, unspecified; E78.5 Hyperlipidemia, unspecified; R68.89 Other general symptoms and signs; E55.9 Vitamin D deficiency, unspecified; R53.83 Other fatigue; Z00.00 Encounter for general adult medical examination without abnormal findings; I10 Essential (primary) hypertension; Z12.5 Encounter for screening for malignant neoplasm of prostate
CPT/HCPCS: 36415; 80053; 80061; 82306; 82607; 83036; 84153; 84402; 84403; 84443; 85025; G0103

== ENCOUNTER 2025-01-24 01:29 | Day surgery (SDC) | payer MEDICARE, OTHER, SELFPAY ==
[2025-01-16 15:00] VITALS: BMI 26.4
--- OUTSIDE RECORDS SUMMARY | 2025-01-24 01:32 | XMS_ITS | Clinical Summary ---
Author Organization [facility] Address [address] [place] [address] Care Team Providers Care Equalizing Saw Operator Name Role Phone Unavailable Primary Care Provider Unavailabl e Source Comments [facility],non-owned Affiliates and Associated Physician Practices is amultiple site organization consisting of ambulatory clinics and hospital sitesin [place], [place] and [place]. This disclosure is being madepursuant to the Care Everywhere program and may not contain all information available regarding this patient. Last updated 18.[facility] Active Problems Problem Noted Date Diagnosed Date Palpitations 05/07/2018 Paroxysmal atrial fibrillation 04/04/2018 Hyperlipidemia 04/04/2018 Social History Tobacco Use Types Packs/Day Years Used Date Smoking Tobacco: Never Assessed Sex and Gender Information Value Date Recorded Sex Assigned at Not on file Legal Sex Male 12:56 PM DRAW TENDER Gender Identity Not on file Sexual Orientation [...]
--- OUTSIDE RECORDS SUMMARY | 2025-01-24 01:32 | XMS_ITS | Continuity of Care Document ---
Author Name [facility] Organization [facility] Care Team Providers Care Time Study Technologist Name Role Phone [facility] Unavailable Unavailable Medications Combined list of outpatient [...] ORAL, ADVAGEN PHARMA, 500 ea. BOTTLE Active [id number] 4 2023 30 Pharmac y Data Transac tion Service Facilit y DILTIAZEM 24HR ER (CD) (diltiazem HCl), 120 MG, CAP ER 24H, ORAL, [employer] 90 ea. BOTTLE Cancele d [id number] : 2023 0 Pharmac y Data Transac tion Service Facilit y DILTIAZEM 24HR ER (CD) (diltiazem HCl), 120 MG, CAP ER 24H, ORAL, INGENUS PHARMAC, 90 ea. BOTTLE Cancele d [id number] : 2023 0 Pharmac y Data Transac tion Service Facilit y MULTAQ (DRONEDARON E HYDROCHLORI DE), 400 MG, TABLET, ORAL, SANOFI-AVEN TIS, 60 ea. BOTTLE Active [id number] 2023 90 Pharmac y Data Transac tion Service Facilit y TAMSULOSIN HCL (TAMSULOSIN HCL), 0.4 MG, CAP.SR 24H, ORAL, ZYDUS PHARMACEU, 1000 ea. BOTTLE Active [id number] 2023 90 Pharmac y Data Transac tion Service Facilit y TESTOSTERON E CYPIONATE (testostero ne cypionate), 200 MG/ML, VIAL, INTRAMUSC, [facility]ITAL[facility] 1 ml VIAL Cancele d [id number] : 2023 0 Pharmac y Data Transac tion Service Facilit y VITAMIN D2 (ergocalcif ariadne (vitamin D2)), 1250 MCG, CAPSULE, ORAL, [employer], 100 ea. BOTTLE Active [id number] 2023 12 Pharmac y Data Transac tion Service Facilit y ZOLPIDEM TARTRATE (zolpidem tartrate), 5 MG, TABLET, ORAL, [employer]KARE, 1000 ea. BOTTLE Active [id number] 4 2023 30 Pharmac y Data Transac tion Service Facilit y Immunizations Combined list of available immunizations from the Department of Defense and Veterans Affairs facilities. Immunization Series Date Given Administered By Site Reaction Lot Number CVX Code Drug Lamp Cleaner Street Light Status Comments Source Influenza, injectable, MDCK, preservative free, quadrivalent 2019 TORRES, () Not Given Influenza , injectabl e, MDCK, preservat raul free, quadrival ent [facility] hepatitis A vaccine, adult dosage 2 1995 Unknown, Provider 52 () complet hepatitis A vaccine, adult dosage DoD hepatitis B vaccine, adult dosage 2 1995 Unknown, Provider 43 () complet hepatitis B vaccine, adult dosage [facility] typhoid vaccine, parenteral, acetone-kille d, dried ([place]. ) 2 1995 Unknown, Provider 53 () complet typhoid vaccine, parentera l, acetone-k illed, dried ([place] ) [facility] tuberculin skin test; purified protein derivative solution, intradermal 1 1995 Unknown, Provider 96 () complet tuberculi n skin test; purified protein derivativ e solution, intraderm al [facility] tetanus and diphtheria toxoids, adsorbed, preservative free, for adult use (2 Lf of tetanus toxoid and 2 Lf of diphtheria toxoid) 1995 Unknown, Provider 09 () complet tetanus and diphtheri a toxoids, adsorbed, preservat raul free, for adult use (2 Lf of tetanus toxoid and 2 Lf of diphtheri a toxoid) [facility] hepatitis B vaccine, adult dosage 1 [...] facilities. Social History Type Response Date Comment [facility] e This section is an empty social history section. DoD
--- OUTSIDE RECORDS SUMMARY | 2025-01-24 01:32 | XMS_ITS | Clinical Summary ---
Author Organization [address] Address [address] [place] [address] Care Team Providers Care Inspector Wire Products Name Role Phone Fermin Hendrickson MD Primary Care Provider Allergies No known active allergies Medications tamsulosin (FLOMAX) 0.4 mg capsule Take 0.4 mg by mouth daily. Active vit A,C and Y-mtorgx-krdcbe ls (OCUVITE) 300 mcg-200 mg-27 mg-2 mg [...] Encounters Date Type Department Care Team Description 01/20/2025 Abstract [facility] - [address] [facility] [address] [address] [facility] [address] [place] [address] Provider, Abstract 01/20/2025 Abstract [facility] - [address] [facility] [address] [address] [facility] [address] [place] [address] Provider, Abstract from Last 3 Months Social History Tobacco [...] Comments Blood Pressure 130/80 08/01/2024 2:00 PM DATA PROCESSING SUPERVISOR Pulse 49 08/01/2024 2:00 PM DATA PROCESSING SUPERVISOR Temperature - - Respiratory Rate - - Oxygen Saturation - - Inhaled Oxygen Concentration - - Weight 87.1 kg (192 lb) 08/01/2024 2:00 PM DATA PROCESSING SUPERVISOR Height 180.3 cm (5' 11 ) 08/01/2024 2:00 PM DATA PROCESSING SUPERVISOR Body Mass Index 26.78 08/01/2024 2:00 PM DATA PROCESSING SUPERVISOR Plan of Treatment Upcoming Encounters Date Type Department Care Team (Late st Contact Info) Description 02/07/2025 11:30 AM CDT Office Visit [facility] [address] [facility] [address] [address] [facility] [address] [place] [address] [place] [address] [facility] [address] [place] [address] Health Maintenance Due Date Last [...] 2032 ZOSTER VACCINE Completed 01/15/2022, 11/07/2021 Insurance FOR LIFE [employer] CHOICE PPO MCR Member Subscriber Plan / Payer (Ef fective 2023-Present) Name:MISTY Jackson Gee Relation to Subscriber:Self Name:MISTY Jackson Payer ID:Not on file Type:PPO Address: [place] [id number] [employer] GOLD PLUS O MCR Member Subscriber Plan / Payer (Ef fective 2024-Present) Name:MISTY Jackson Gee Relation to Subscriber:Self Name:MISTY Jackson Gee Payer ID:Not on file Type:HMO Address: [place] [id number] Care Teams Inspector Wire Products Relationship Specialty Start Date End Date Fermin Hendrickson MD [facility] [place] [address] PCP - General Family Practice 01/14/24
--- NOTE | 2025-01-24 08:43 | P.PNAN_ITS ---
Anes - Initial Pre Proc Eval Procedure: Operation Date: 01/24/25 10:00 Proposed Procedures p Colonoscopy - Jose J Cook MD Date/Time: 01/24/25 08:43 Surgeon: Jose J Cook MD Pre Op Diagnosis: Personal history of colon polyps, unspecified Patient Data Age: 69 Gender: M Height: 1.8 m Weight: 86.2 kg Allergies Allergy/AdvReac Type Severity Reaction Status Date / Time No Known Allergies Allergy Verified 01/24/25 08:45 Home Medications Medication Instructions Recorded Confirmed Type calcium 333 mg-vit D3 200 1 tablet PO DAILY 04/01/23 01/16/25 History unit-magnesium 133 mg-zinc 5 mg tablet lutein 25 mg-zeaxanthin 5 mg 1 cap PO DAILY 04/01/23 01/16/25 History capsule (Ocuvite Lutein) aspirin 81 mg tablet,delayed 81 mg PO DAILY 06/03/23 01/16/25 History release tamsulosin 0.4 mg capsule (Flomax) 0.4 mg PO QHS #90 caps 08/12/24 01/16/25 Rx diclofenac sodium 75 mg 75 mg PO DAILY PRN pain #90 tabs 08/15/24 01/16/25 Rx tablet,delayed release polyethylene glycol 3350 17 17 g PO DAILY PRN constipation 10/25/24 01/16/25 History gram/dose oral powder (ClearLax) memantine 10 mg tablet 10 mg PO BID #180 tabs 11/09/24 01/16/25 Rx lisinopril 10 1 tablet PO DAILY #90 tabs 11/11/24 01/16/25 Rx mg-hydrochlorothiazide 12.5 mg tablet zolpidem 5 mg tablet (Ambien) 5 mg PO QHS PRN insomnia #30 tabs 11/11/24 01/16/25 Rx cholecalciferol (vitamin D3) 50 50 mcg PO DAILY 12/22/24 01/16/25 History mcg (2,000 unit) capsule diltiazem HCl 240 mg 240 mg PO DAILY #100 caps 12/22/24 01/16/25 Rx capsule,extended release 24 hr (Cardizem CD) sertraline 50 mg tablet 50 mg PO DAILY 12/22/24 01/16/25 History syringe with needle, safety 3 mL #10 ea 04/17/25 05/12/25 Rx 25 gauge x 1 (BD Integra Syringe) testosterone cypionate 200 mg/mL 200 mg IM .[id number] #6 mL 12/22/24 01/16/25 Rx intramuscular oil (Depo-Testosterone) Patient hx anesthesia problems: none Family hx anesthesia problems: none Results Review: All pre-operative results and documents have been reviewed as part of the pre- operative evaluation. [facility] Past Medical History Medical History Dementia of the Alzheimer's type Family history of colon cancer in mother History of colon polyps Dementia of the Alzheimer's type BPH (benign prostatic hyperplasia) Daytime sleepiness MCI (mild cognitive impairment) Hypogonadism male Insomnia Chronic low back pain Environmental allergies Essential (primary) hypertension Atrial flutter with rapid ventricular response (~03/2023) IBS (irritable bowel syndrome) Paroxysmal atrial fibrillation Surgical History Surgical History History of cholecystectomy (~2012) History of radiofrequency ablation (RFA) procedure for cardiac arrhythmia (~2012) Family History Family History Mother Colorectal cancer Sibling Diabetes mellitus Hypertension Heart disease Social History Social History Smoking status: Never smoker Second hand tobacco smoke exposure: No Alcohol intake: current Drinks per week: 5 Substance use: never Substance use type: does not use Do You Feel Safe in your Home?: Yes Lack of Transportation: No Lack of Food: Never True Current Housing: Decline to Answer Concerned About Future Housing: Decline to Answer Difficulty Paying Gas/Electric Bills: Decline to Answer Difficulty Paying for Meds: Decline to Answer Currently Unemployed: Decline to Answer Education: Decline to Answer Difficulty w/ Childcare or Family Care: Decline to Answer Living arrangements: with family Additional living arrangements comments: Occupation/Education: retired Gender identity (if verbalized by the patient): Male Sexual Orientation (if Verbalized by the Patient): Straight or Heterosexual Spiritual care concerns: No Agree to blood products: Yes Anes - Eval Final PreProcedure Day of Procedure 01/24/25 08:43 Patient weight: overweight Heart: regular rate and rhythm Lungs: clear to auscultation Airway: Mallampati scale class II Neurological: alert and oriented Last oral intake: >/= 8 hours ASA classification: III Emergent: no Anesthetic plan: proceed Anesthesia type and monitoring: general GIVS and standard monitoring Results Review: All pre-operative results and documents have been reviewed as part of the pre- operative evaluation. Informed Consent: The patient's anesthetic plan and its attendant risks and benefits were discussed with the patient/family/POA. Questions were solicited and answers provided to the satisfaction of the patient/family/POA.
[2025-01-24 08:46] VITALS: BP 144/81; PULSE 48; RESP 20; TEMP 36.4; O2SAT 99; BMI 26.9
[2025-01-24] MEDS: LACTATED RINGERS 1,000 ML 150 ML IV CONT (09:00)
--- NOTE | 2025-01-24 09:01 | SUR.PREOP ---
Patient HR 45 on admission to preop. Patient reports history of bradycardia. Pt very active, runner. Dr. Miller notified and aware as well as TIFFANIE Salinas
--- NOTE | 2025-01-24 09:48 | PM.IMHP ---
H&P: HPI History of Present Illness Date/Time: 01/24/25 09:48 Chief Complaint: Family history of colorectal cancer Narrative: This patient has family history of colorectal cancer. his mother had when she was 80 years old. Review of Systems Review of Systems: All systems reviewed & are unremarkable except as noted in HPI and below PMFSH Past Medical History Medical History (Updated 01/24/25 @ 09:49 by Jose J Cook MD) Dementia of the Alzheimer's type Family history of colon cancer in mother History of colon polyps Dementia of the Alzheimer's type BPH (benign prostatic hyperplasia) Daytime sleepiness MCI (mild cognitive impairment) Hypogonadism male Insomnia Chronic low back pain Environmental allergies Essential (primary) hypertension Atrial flutter with rapid ventricular response (~03/2023) IBS (irritable bowel syndrome) Paroxysmal atrial fibrillation Surgical History Surgical History History of cholecystectomy (~2012) History of radiofrequency ablation (RFA) procedure for cardiac arrhythmia (~2012) Family History Family History Mother Colorectal cancer Sibling Diabetes mellitus Hypertension Heart disease Social History Social History Smoking status: Never smoker Second hand tobacco smoke exposure: No Alcohol intake: current Drinks per week: 5 Substance use: never Substance use type: does not use Do You Feel Safe in your Home?: Yes Lack of Transportation: No Lack of Food: Never True Current Housing: Decline to Answer Concerned About Future Housing: Decline to Answer Difficulty Paying Gas/Electric Bills: Decline to Answer Difficulty Paying for Meds: Decline to Answer Currently Unemployed: Decline to Answer Education: Decline to Answer Difficulty w/ Childcare or Family Care: Decline to Answer Living arrangements: with family Additional living arrangements comments: Occupation/Education: retired Gender identity (if verbalized by the patient): Male Sexual Orientation (if Verbalized by the Patient): Straight or Heterosexual Spiritual care concerns: No Agree to blood products: Yes Meds Home Medications and Allergies Home Medications Medication Instructions Recorded Confirmed Type calcium 333 mg-vit D3 200 1 tablet PO DAILY 04/01/23 01/24/25 History unit-magnesium 133 mg-zinc 5 mg tablet lutein 25 mg-zeaxanthin 5 mg 1 cap PO DAILY 04/01/23 01/24/25 History capsule (Ocuvite Lutein) aspirin 81 mg tablet,delayed 81 mg PO DAILY 06/03/23 01/24/25 History release tamsulosin 0.4 mg capsule (Flomax) 0.4 mg PO QHS #90 caps 08/12/24 01/24/25 Rx diclofenac sodium 75 mg 75 mg PO DAILY PRN pain #90 tabs 08/15/24 01/16/25 Rx tablet,delayed release polyethylene glycol 3350 17 17 g PO DAILY PRN constipation 10/25/24 01/16/25 History gram/dose oral powder (ClearLax) memantine 10 mg tablet 10 mg PO BID #180 tabs 11/09/24 01/24/25 Rx lisinopril 10 1 tablet PO DAILY #90 tabs 11/11/24 01/24/25 Rx mg-hydrochlorothiazide 12.5 mg tablet zolpidem 5 mg tablet (Ambien) 5 mg PO QHS PRN insomnia #30 tabs 11/11/24 01/16/25 Rx cholecalciferol (vitamin D3) 50 50 mcg PO DAILY 12/22/24 01/24/25 History mcg (2,000 unit) capsule diltiazem HCl 240 mg 240 mg PO DAILY #100 caps 12/22/24 01/24/25 Rx capsule,extended release 24 hr (Cardizem CD) sertraline 50 mg tablet 50 mg PO DAILY 12/22/24 01/24/25 History syringe with needle, safety 3 mL #10 ea 12/22/24 01/16/25 Rx 25 gauge x 1 (BD Integra Syringe) testosterone cypionate 200 mg/mL 200 mg IM .[id number] #6 mL 12/22/24 01/16/25 Rx intramuscular oil (Depo-Testosterone) Allergies Allergy/AdvReac Type Severity Reaction Status Date / Time No Known Allergies Allergy Verified 01/24/25 08:45 Vital Signs Vital Signs - 24 hr 01/24/25 08:46 Temperature 97.6 F Pulse Rate 48 L Respiratory Rate 20 Blood Pressure 144/81 H Pulse Oximetry 99 Oxygen Delivery Room Air Exam Const: General: cooperative and healthy appearing Resp: Effort & Inspection: normal respiratory effort and able to speak in complete sentences Auscultation: clear to auscultation bilaterally Cardio: Rate: regular rate Rhythm: regular rhythm GI: Inspection: normal to inspection GI Palp: No No hepatosplenomegaly present Auscultation: normal bowel sounds Rectal Exam: deferred Skin: General skin exam: normal color Psych: Appearance: grossly normal Mental Status: mental status grossly normal Assessment and Plan Assessment and plan (1) Family history of colon cancer in mother: Code(s): Z80.0 - Family history of malignant neoplasm of digestive organs Status: Acute Assessment and Plan: The patient is deemed a good candidate for the procedure. Consent signed. Will proceed.
[2025-01-24 10:12] VITALS: BP 99/60; PULSE 46; RESP 16; O2SAT 98
[2025-01-24 10:21] VITALS: BP 122/81; PULSE 49; RESP 17; O2SAT 99
[2025-01-24 10:31] VITALS: BP 135/70; PULSE 46; RESP 20; O2SAT 99
== END 2025-01-24 10:55 | disposition home or self-care (01) ==
PROVIDERS: PCP Family Medicine; Referring Provider Family Medicine; Visit Provider Internal Medicine Gastroenterology
PROC: 0DJD8ZZ Inspection of Lower Intestinal Tract, Via Natural or Artificial Opening Endoscopic (ICD-10-PCS; CPT 45378; principal; 2025-01-24 10:00)
DX: Z12.11 Encounter for screening for malignant neoplasm of colon (principal); K64.8 Other hemorrhoids; I10 Essential (primary) hypertension; K58.9 Irritable bowel syndrome, unspecified; I48.0 Paroxysmal atrial fibrillation; N40.0 Benign prostatic hyperplasia without lower urinary tract symptoms; E29.1 Testicular hypofunction; G47.00 Insomnia, unspecified; I48.92 Unspecified atrial flutter; G30.9 Alzheimer's disease, unspecified; F02.80 Dementia in other diseases classified elsewhere, unspecified severity, without behavioral disturbance, psychotic disturbance, mood disturbance, and anxiety; G89.29 Other chronic pain; M54.50 Low back pain, unspecified; Z79.82 Long term (current) use of aspirin; Z98.890 Other specified postprocedural states; Z90.49 Acquired absence of other specified parts of digestive tract; Z86.0100 Personal history of colon polyps, unspecified; Z86.79 Personal history of other diseases of the circulatory system; Z80.0 Family history of malignant neoplasm of digestive organs; Z82.49 Family history of ischemic heart disease and other diseases of the circulatory system
CPT/HCPCS: G0105; J2003; J2704; J7120

== ENCOUNTER 2025-07-12 07:56 | Outpatient (CLI) | payer MEDICARE, OTHER, SELFPAY ==
--- OUTSIDE RECORDS SUMMARY | 2025-07-12 08:03 | XMS_ITS | Clinical Summary ---
Author Organization [email or web address] Address [address] [place] [address] Care Team Providers Care Plastic Shaper Name Role Phone Unavailable Primary Care Provider Unavailabl e Source Comments [facility],non-owned Affiliates and Associated Physician Practices is amultiple site organization consisting of ambulatory clinics and hospital sitesin [place], [place], [place] and [place]. This disclosure is being madepursuant to the Care Everywhere program and may not contain all information available regarding this patient. 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
--- OUTSIDE RECORDS SUMMARY | 2025-07-12 08:03 | XMS_ITS | Clinical Summary ---
Author Organization [employer] [id number] [facility] Address [address] [place] [address] Care Team Providers Care Sales Lead Name Role Phone Fermin Hendrickson MD Primary Care Provider Allergies No known active allergies Medications tamsulosin (FLOMAX) 0.4 mg capsule Take 0.4 mg by mouth daily. Active vit A,C and B-qgdtjg-tcsrf als (OCUVITE) 300 mcg-200 mg-27 mg-2 mg Tablet Take 1 Tablet by mouth daily. Active zolpidem (AMBIEN) 5 mg tablet Take 5 mg by mouth nightly as needed for Insomnia. Active aspirin (ECOTRIN EC) 81 mg Tablet, Delayed Release (E.C.) Take 81 mg by mouth daily. Active diltiaZEM (CARDIZEM CD) 120 mg Controlled Delivery 24 hour capsuleIndicat ions:Palpitati ons TAKE 1 CAPSULE DAILY 90 Capsule 1 4 Active Additional Information Patient taking differently: 240 mgOral DAILY, Reported on 02/07/2025 diclofenac sodium (VOLTAREN) 75 mg Tablet, Delayed Release (E.C.) Take 75 mg by mouth Continuous as needed for Other (See Comment). 4 Active ergocalciferol (VITAMIN D2) 50,000 unit capsule 4 Active sertraline (ZOLOFT) 50 mg tablet Take 50 mg by mouth daily. Active Testosterone Enanthate (DELATESTRYL) 200 mg/mL Oil Inject 50 mg by intramuscular injection every 2 weeks. Active lisinopril-hyd roCHLOROthiazi de (ZESTORETIC) 10-12.5 mg tablet Take 1 Tablet by mouth daily. Active memantine (NAMENDA) 10 mg Tablet Take 10 mg by mouth 2 times daily. Active Active Problems Problem Noted Date Diagnosed Date Palpitations 06/10/2018 Encounters Date Type Department Care Team Description 06/28/2025 External Device Data [facility] ABSTRACTION Provider, Abstract from Last 3 Months Social [...] Reading Time Taken Comments Blood Pressure 130/80 02/07/2025 11:16 AM CDT Pulse 45 02/07/2025 11:16 AM CDT Temperature - - Respiratory Rate - - Oxygen Saturation - - Inhaled Oxygen Concentration - - Weight 87.5 kg (193 lb) 02/07/2025 11:16 AM CDT Height 180.3 cm (5' 11) 02/07/2025 11:16 AM CDT Body Mass Index 26.92 02/07/2025 11:16 AM CDT Plan of Treatment Upcoming Encounters Date Type Department Care Team (Late st Contact Info) Description 02/08/2026 10:00 AM CDT Office Visit [facility] Heart and Vascular Electrophysiology - [id number] [address] [facility] [address] [address] [facility] [address] [place] [address] Mary [facility], [place] [address] [facility] [address] [place] [address] Health Maintenance Due Date Last Done Comments Pre-Diabetes and Diabetes Screening 1955 DTAP/TDAP/TD VACCINES (1 - Tdap) 1976 FIT-DNA Q 3 years 2002 FIT/FOBT Q 1 year 2002 Flex Sig/CT Colonography Q 5 years 2002 PNEUMOCOCCAL VACCINE 50+ YEA RS (1 of 1 - PCV) 2007 INFLUENZA VACCINE (#1) 2025 08/18/2022 COLORECTAL SCREENING 12/14/2031 12/13/2021 Colorectal Cancer Screening 12/14/2031 RSV VACCINE (60+ or ) (1 - 1-dose 75+ series) 2032 ZOSTER VACCINE Completed 01/15/2022, 11/07/2021 Insurance [facility] [employer] ([place]) [address] [place] [id number] [facility] Care Teams Sales Lead Relationship Specialty Start Date End Date Fermin Hendrickson MD [address] [place] [address] PCP - General Family Practice 01/14/24
[2025-07-12 15:51] LABS: Alanine Aminotransferase 21 U/L (6-50); Albumin Level 4.1 g/dL (3.5-5.1); Alkaline Phosphatase 53 U/L (38-126); Anion Gap 5 mmol/L (4-12); Aspartate Amino Transferase 49 U/L (17-59); Bilirubin,Total 0.7 mg/dL (0.2-1.3); Blood Urea Nitrogen 14 mg/dL (9-20); Calcium 9.3 mg/dL (8.4-10.2); Carbon Dioxide 31 mmol/L (22-30); Chloride 102 mmol/L (98-107); Cholesterol 106 mg/dL (0-200); Estimated Glomerular Filt Rate > 60; Glucose 85 mg/dL (65-110); HDL Direct 43 mg/dL; Potassium 3.9 mmol/L (3.4-5.0); Sodium 138 mmol/L (137-145); Total Protein 6.6 g/dL (6.3-8.2); Triglycerides 38 mg/dL (<150)
[2025-07-12 16:27] LABS: Prostate Specific Antigen 3.4 ng/mL (< OR = 4.0)
== END 2025-07-12 07:57 | disposition home or self-care (01) ==
LOC: ANHGOSHLAB 07:56
PROVIDERS: PCP Family Medicine; Visit Provider Family Medicine
DX: E78.5 Hyperlipidemia, unspecified (principal); I10 Essential (primary) hypertension; Z79.899 Other long term (current) drug therapy; Z12.5 Encounter for screening for malignant neoplasm of prostate; Z92.29 Personal history of other drug therapy
CPT/HCPCS: 36415; 80053; 80061; 84153; G0103